=== PATIENT | female | born 1965 | race Caucasian/White ===

== ENCOUNTER 2021-05-21 12:23 | Emergency (ER) | payer OTHER, SELFPAY ==
--- NOTE | ~2021-05-21 | XR_ITS ---
EXAMINATION: XR FOOT, RIGHT CLINICAL INFORMATION: Question soft tissue foreign body great toe. COMPARISON: None TECHNIQUE: AP, lateral, and oblique views of the right foot. FINDINGS: There is no visible soft tissue foreign body in the area of concern. No gas tracking in the soft tissues. There is generalized osteopenia. No focal destructive process or periostitis. Hallux valgus at first MTP is present of approximately 31 degrees. There are mild degenerative changes first MTP and small medial bunion. Old healed fracture involves mid shaft second metatarsal. There is a moderate plantar calcaneal spur. Old orthopedic hardware noted distal tibia and fibula. XR/XR foot RT 2V IMPRESSION: 1. No visible soft tissue radiopaque foreign body or gas tracking in soft tissues. 2. No bony destructive process. 3. Hallux valgus first MTP. Moderate plantar calcaneal spur.
[2021-05-21 12:40] VITALS: BP 113/86; PULSE 76; RESP 18; O2SAT 98; BMI 30.1
--- NOTE | 2021-05-21 13:54 | ED_ITS ---
HPI - General Adult General Chief complaint: Extremity Injury, Lower Stated complaint: possible blister on big toe (right) Time Seen by Provider: 05/21/21 13:50 History of Present Illness HPI narrative: patient complains of painful callus on the bottom of the right foot at the base of the big toe, no injury no redness no fever This is been gradually increasing over weeks to months no acute changes Related Data Allergies Allergy/AdvReac Type Severity Reaction Status Date / Time codeine Allergy Hives Verified 05/21/21 12:47 morphine Allergy Hives Verified 05/21/21 12:46 Review of Systems Review of Systems: Positive for painful callus on the bottom of the right foot Negatives are no fever no chills no neck pain no back pain no joint swelling no rash no numbness weakness or tingling Yes all other systems are reviewed and are negative PMFSH Past Medical History Source: nursing notes reviewed Medical History (Updated 05/22/21 @ 00:01 by Sandra Blair) Cirrhosis Social History Social History Advance Directives: No Advance Directives Information Provided: No Physical Exam Vital Signs: Vital Signs: Last Vital Signs Pulse 76 05/21/21 12:40 Resp 18 05/21/21 12:40 BP 113/86 05/21/21 12:40 Pulse Ox 98 05/21/21 12:40 Body Mass Index 30.1 General appearance no acute distress Head is normocephalic atraumatic Neck is supple Respiratory no distress The back full range of motion Extremities full range of motion x4 The right foot had callus in the medial foot and in the MTP area with no surrounding erythema no wound no sign of infection, full range of motion in the toes and the ankle and neurovascular intact Course Course Course Narrative: Patient with of long history of of gradually increasing in size callus on the right foot with no sign of infection is referred to asphalt heater tender Discharge Plan Discharge Clinical Impression: Callus Patient Disposition: Home, Self-Care Additional Instructions: you can apply salicylic acid available [id number] to the callus, you can do this twice a day and use pumice stone to scrape off skin There is no sign of any infection or dangerous condition now Follow with asphalt heater tender as soon as possible as they have other methods for removing callus return any time if worse You may need a referral from primary doctor to see a asphalt heater tender In the foot section of the pharmacy they have circular bandages that can help pad the callus and they have molesskin bandage which sometimes helps absorbed pressure of impact when walking Referrals: Louie Huerta [Physician] - 2 days ( painful callus) Interventions: ED Discharge Assessment Last Done: 05/21/21 14:06 Discharge Date/Time: 05/21/21 14:07
[2021-05-21] MEDS: Acetaminophen 325 MG TABLET 650 MG PO (14:04)
== END 2021-05-21 14:07 | disposition home or self-care (01) ==
PROVIDERS: Emergency Provider Emergency Medicine
DX: L84 Corns and callosities (principal)
CPT/HCPCS: 73620; 99283

== ENCOUNTER 2021-06-12 00:14 | Emergency (ER) | payer OTHER, SELFPAY ==
[2021-06-12 00:27] VITALS: BP 136/93; BP 170/100; PULSE 85; PULSE 92; RESP 20; TEMP 36.7; O2SAT 93; O2SAT 94; BMI 33.0
[2021-06-12 01:31] VITALS: BP 131/78; PULSE 88; RESP 16; O2SAT 95
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
[2021-06-12 01:58] LABS: Glucose Urine UA NEG (NEG); Leukocyte Esterase Urine 1+ (NEG); Nitrite Urine NEG (NEG); Specific Gravity - Urine <= 1.005 (1.005-1.025); UACC Culture Trigger YES; Urine Blood NEG (NEG); Urine Ketones NEG (NEG); Urine Protein NEG (NEG-TRACE)
[2021-06-12 02:05] LABS: Appearance Urine CLEAR; Color Urine YELLOW
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
[2021-06-12 02:16] LABS: Bacteria Urine TRACE /LPF; Mucus Urine TRACE /LPF; RBC Urine 0 /HPF (0); Squamous Epithelial Cell Urine 2+ /LPF; WBC Clumps Urine NOTED
[2021-06-12 02:21] LABS: Amphetamine Screen Urine Not Detected (Not Detect); Barbiturates, Urine Not Detected (Not Detect); Benzodiazepines Screen Urine Not Detected (Not Detect); Cannabinoid Screen Urine Not Detected (Not Detect); Cocaine Screen Urine Not Detected (Not Detect); Opiate Screen Urine Not Detected (Not Detect); Phencyclidine Screen Urine Not Detected (Not Detect)
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
[2021-06-12 03:10] VITALS: BP 102/44; PULSE 77; RESP 15; O2SAT 95
[2021-06-12] MEDS: cephALEXin 500 MG CAPSULE PO (03:11)
[2021-06-12 03:16] LABS: Basophils Percent Auto 0.3 % (0-2); Hemoglobin 13.6 g/dl (12.0-16.0); Imm Gran Abs Auto 0.02 X10*3/uL (0.00-0.03); Imm Gran Pct Auto 0.3 % (0.0-0.4); Lymphocytes Percent Auto 14.3 % (20-40); Mean Corpuscular Volume 90.1 fL (80-98); PLT CLUMP 1; SCAN SMEAR FLAG 1
[2021-06-12 03:18] LABS: Eosinophils Absolute Auto 0.1 X10*3/uL (0.0-0.4); Eosinophils Percent Auto 1.2 % (0-4); Hematocrit 39.1 % (37-47); Mean Corpuscular HGB Conc 34.8 g/dl (31.0-35.0); Mean Corpuscular Hemoglobin 31.3 pg (27.0-33.0); Mean Platelet Volume 9.9 fL (9.4-12.3); Monocytes Absolute Auto 0.4 X10*3/uL (0.1-1.2); Monocytes Percent Auto 5.4 % (2-11); Neutrophils Absolute Auto 5.3 X10*3/uL (2.0-8.3); Neutrophils Percent Auto 78.5 % (45-73); Red Blood Count 4.34 X10*6/uL (4.20-5.50); White Blood Count 6.8 X10*3/uL (4.8-10.8)
[2021-06-12 03:26] LABS: MANUAL DIFF FLAG NO; Platelet Count 87 X10*3/uL (160-400)
[2021-06-12 03:43] LABS: Ethanol 170 mg/dL
[2021-06-12 03:49] LABS: Alanine Aminotransferase 22 U/L (0-31); Albumin Level 3.9 g/dL (3.5-5.0); Alkaline Phosphatase 113 U/L (39-117); Anion Gap 14 (12-20); Aspartate Amino Transferase 46 U/L (5-31); Bilirubin Total 1.6 mg/dL (0.0-1.0); Blood Urea Nitrogen 7 mg/dL (9-16); Calcium 8.4 mg/dL (8.4-10.2); Carbon Dioxide 25 mmol/L (22-29); Chloride 111 mmol/L (96-108); Estimated Glomerular Filt Rate > 60; Glucose Random 125 mg/dL (60-115); Potassium 3.4 mmol/L (3.3-5.1); Sodium 147 mmol/L (135-145); Total Protein 6.7 g/dL (6.5-8.0)
[2021-06-12 04:54] VITALS: BP 92/73; PULSE 82; RESP 14; O2SAT 94
--- NOTE | 2021-06-12 05:13 | PC.NURSE ---
This rn attempted to contact pt's daughter, Tamara, at [phone], for a ride home per pt's request. Attempt unsuccessful. Dr Lam made aware. Pt to be medicated in efforts to prevent ETOH withdrawal
[2021-06-12] MEDS: chlordiazePOXIDE HCl 25 MG CAPSULE PO (05:20)
== END 2021-06-12 08:18 | disposition home or self-care (01) ==
PROVIDERS: Emergency Provider Student in an Organized Health Care Education/Training Program
DX: F10.920 Alcohol use, unspecified with intoxication, uncomplicated (principal); Y90.6 Blood alcohol level of 120-199 mg/100 ml; S80.12XA Contusion of left lower leg, initial encounter; S80.11XA Contusion of right lower leg, initial encounter; S40.022A Contusion of left upper arm, initial encounter; S40.021A Contusion of right upper arm, initial encounter; S30.1XXA Contusion of abdominal wall, initial encounter; S20.219A Contusion of unspecified front wall of thorax, initial encounter; Y04.2XXA Assault by strike against or bumped into by another person, initial encounter; K74.60 Unspecified cirrhosis of liver; Y93.9 Activity, unspecified; Y92.019 Unspecified place in single-family (private) house as the place of occurrence of the external cause; Y99.9 Unspecified external cause status; N39.0 Urinary tract infection, site not specified
CPT/HCPCS: 36415; 80053; 80307; 81001; 81003; 82077; 85025; 87086; 99284; 99285

== ENCOUNTER 2024-02-07 05:58 | Inpatient (IN) | payer OTHER, SELFPAY ==
--- NOTE | ~2024-02-07 | XR_ITS ---
EXAMINATION: Right ankle and right lower leg CLINICAL INFORMATION: Fall COMPARISON: None. TECHNIQUE: 2 views of the right lower leg and 2 views of the right ankle right ankle. FINDINGS: Right ankle: There is evidence of old trauma to the right ankle. There are old healed fractures of the tibial and fibular shafts. No acute fracture. There is a plate and screws seen in the distal fibular shaft and lateral malleolus. There is a single screw in the medial malleolus. There is an intramedullary kamila and 2 distal screws in the tibia. There is likely posttraumatic osteoarthritis at the ankle joint. Osteopenia. There is a plantar calcaneal spur. There may be an old fracture of the fifth metatarsal shaft. Right lower leg: Old healed fractures of the mid fibular and tibial shafts. Intramedullary kamila and 3 proximal screws in the tibia. Osteopenia. No acute fracture or dislocation. XR/XR ankle RT min 3V IMPRESSION: Old trauma. No acute fracture or dislocation. Osteopenia. 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
--- NOTE | ~2024-02-07 | XR_ITS ---
EXAMINATION: XR FEMUR, LEFT CLINICAL INFORMATION: Fall COMPARISON: None available. TECHNIQUE: AP and lateral views of the left femur were obtained. FINDINGS: Bone alignment is normal. No acute fracture or dislocation. There is an old healed intratrochanteric fracture. There is an intramedullary kamila, 2 compression/lag screws and single distal cortical screw in the proximal femur. There is an old healed fracture of the distal femoral shaft. There is a plate and multiple screws in the distal left femur. Orthopedic hardware appears intact. Hip and knee joints are unremarkable. XR/XR femur LT 2V IMPRESSION: Old trauma to the left femur. No acute fracture or dislocation.
--- NOTE | ~2024-02-07 | XR_ITS ---
EXAMINATION: Right ankle and right lower leg CLINICAL INFORMATION: Fall COMPARISON: None. TECHNIQUE: 2 views of the right lower leg and 2 views of the right ankle right ankle. FINDINGS: Right ankle: There is evidence of old trauma to the right ankle. There are old healed fractures of the tibial and fibular shafts. No acute fracture. There is a plate and screws seen in the distal fibular shaft and lateral malleolus. There is a single screw in the medial malleolus. There is an intramedullary kamila and 2 distal screws in the tibia. There is likely posttraumatic osteoarthritis at the ankle joint. Osteopenia. There is a plantar calcaneal spur. There may be an old fracture of the fifth metatarsal shaft. Right lower leg: Old healed fractures of the mid fibular and tibial shafts. Intramedullary kamila and 3 proximal screws in the tibia. Osteopenia. No acute fracture or dislocation. XR/XR tibia fibula RT 2V IMPRESSION: Old trauma. No acute fracture or dislocation. Osteopenia. 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
--- NOTE | ~2024-02-07 | CT_ITS ---
EXAMINATION: CT CHEST WITHOUT CONTRAST CLINICAL INFORMATION: Fall with abnormal chest radiograph COMPARISON: Chest radiograph earlier today: Low lung volumes. Question bilateral pneumonia, left greater than right TECHNIQUE: Multidetector volumetric CT imaging of the chest was done. Axial MIP volume rendering provided. Sagittal and coronal reformatted images were obtained. This CT examination was performed using dose optimization techniques as appropriate, variously including the following: *Automated exposure control *Adjustment of mA and/or kV according to patient size (this includes techniques or standardized protocols for targeted exams where dose is matched to indication/reason for exam; i.e. extremities or head) *Use of iterative reconstruction technique DLP: 485 mGy-cm FINDINGS: LUNGS: Bilateral upper lobe consolidation is present. Left basilar marked bronchial wall thickening and tree-in-bud like opacities consistent with infection as well as. MEDIASTINUM: Heart size upper limits of normal. No aortic aneurysm. No mediastinal or hilar lymphadenopathy. CORONARY ARTERY CALCIFICATION: None visualized on this study. PLEURA: There is no pleural effusion. No pleural mass or thickening. AXILLA: No lymphadenopathy. UPPER ABDOMEN: The spleen is enlarged measuring at least 16 cm in greatest dimension. Splenic hilar perigastric and probable periesophageal varices are present. The liver has a nodular border and there is recanalization of the umbilical vein suggesting cirrhosis and portal hypertension. A large amount of colon is interposed between the abdominal wall/diaphragm in the right lobe of the liver. OSSEOUS STRUCTURES: Degenerative changes are noted throughout the spine with kyphosis. Schmorl's node is seen at the superior endplate of L1. CT/CT chest wo IV con IMPRESSION: 1. Bilateral upper lobe consolidation with left basilar bronchial wall thickening and tree-in-bud like opacities consistent with infection. 2. Cirrhosis with portal hypertension with varices and splenomegaly. Fleischner guidelines were followed.
--- NOTE | ~2024-02-07 | CT_ITS ---
EXAMINATION: CT HEAD WITHOUT CONTRAST CLINICAL INFORMATION: Fall COMPARISON: None available. TECHNIQUE: Contiguous axial imaging was performed from the skull base to vertex without intravenous administration of contrast. This CT examination was performed using dose optimization techniques as appropriate, variously including the following: *Automated exposure control *Adjustment of mA and/or kV according to patient size (this includes techniques or standardized protocols for targeted exams where dose is matched to indication/reason for exam; i.e. extremities or head) *Use of iterative reconstruction technique DLP: 596 mGy-cm FINDINGS: There is no evidence of an extra-axial collection. There is no evidence of intra or extra-axial hemorrhage. The ventricles and extra-axial CSF spaces are appropriate. There is encephalomalacia, old small infarct or possibly postsurgical change adjacent to the frontal horn of the right lateral ventricle and subcortical white matter of the right frontal lobe. No mass mass effect or acute infarct is seen. Right frontal parietal craniotomy defect. No skull fracture. Visualized paranasal sinuses, mastoid air cells and middle ears are clear. CT/CT head/brain wo IV con IMPRESSION: No acute findings. Right frontal and parietal bone craniotomy defect. Question encephalomalacia or postsurgical change versus old infarct in the right subcortical and periventricular white matter of the right frontal lobe
--- NOTE | ~2024-02-07 | XR_ITS ---
EXAMINATION: XR CHEST CLINICAL INFORMATION: Fall COMPARISON: None available. TECHNIQUE: Frontal view of the chest was obtained. FINDINGS: The lung volumes are low. The cardiac and mediastinal contours are unremarkable. There are patchy areas of airspace disease in the left lung questionable for pneumonia. May be a small infiltrate in the right upper lobe and right perihilar region as well.. No pleural effusion or pneumothorax. No acute bone abnormality is seen. Surgical hardware in the left proximal humerus. XR/XR chest 1V IMPRESSION: Low lung volumes. Question bilateral pneumonia, left greater than right.
--- NOTE | ~2024-02-07 | XR_ITS ---
EXAMINATION: XR KNEE, RIGHT CLINICAL INFORMATION: Fall COMPARISON: None available. TECHNIQUE: Three views of the right knee. FINDINGS: No acute fracture or dislocation. Old healed fracture of the proximal tibial shaft. Intramedullary kamila and 3 proximal tibial screws. Osteopenia. Normal joint spaces. No joint effusion. XR/XR knee RT 3V IMPRESSION: No acute fracture or dislocation. Osteopenia. Old trauma to the proximal tibia.
--- NOTE | ~2024-02-07 | US_ITS ---
EXAMINATION: US VENOUS ULTRASOUND WITH DOPPLER LOWER EXTREMITY, RIGHT CLINICAL INFORMATION: Right leg pain and swelling COMPARISON: None available. TECHNIQUE: Ultrasound of the deep veins is performed from the hip to the calf with compression sonography and color and pulse Doppler assessment. Spectral analysis with color-flow imaging is performed. FINDINGS: There is normal venous compression and respiratory variation and augmented flow. The visualized common femoral vein, superficial femoral vein, profunda femoral vein, popliteal vein, and the trifurcation region shows no evidence of deep venous thrombosis. There is no significant popliteal fossa cyst. The contralateral left common femoral vein appears normal. If the patient's symptoms persist, followup ultrasound in 5 days 7 days might be of value to exclude proximal propagation from a non-visualized calf vein. US/US venous duplex LE RT IMPRESSION: No DVT demonstrated in the right lower extremity.
--- NOTE | ~2024-02-07 | XR_ITS ---
EXAMINATION: XR HIP, RIGHT CLINICAL INFORMATION: Fall COMPARISON: None available. TECHNIQUE: Two views of the right hip. FINDINGS: Bone alignment is normal. No fracture or dislocation. The right hip joint is normal. There is a large laminated 2 cm calcification in the right pelvis area appearance is questionable for possible bladder stone. This could be further evaluated with ultrasound. There is an adjacent surgical clip in the right pelvis. Soft tissues are otherwise normal. XR/XR hip RT min 2V IMPRESSION: No fracture or dislocation. 2 cm laminated right pelvic calcification, question representing a bladder stone.
[2024-02-07 06:11] VITALS: BP 110/78; BP 95/56; PULSE 72; PULSE 88; RESP 19; TEMP 36.4; O2SAT 92; O2SAT 95; BMI 29.7
[2024-02-07 06:56] LABS: Basophils Percent Auto 0.9 % (0-2); Eosinophils Absolute Auto 0.1 X10*3/uL (0.0-0.4); Eosinophils Percent Auto 5.9 % (0-4); Hemoglobin 9.4 g/dl (12.0-16.0); Imm Gran Abs Auto 0.01 X10*3/uL (0.00-0.03); Imm Gran Pct Auto 0.5 % (0.0-0.4); Lymphocytes Absolute Auto 0.6 X10*3/uL (1.2-4.9); Lymphocytes Percent Auto 28.8 % (20-40); MANUAL DIFF FLAG SCAN; Mean Corpuscular HGB Conc 30.3 g/dl (31.0-35.0); Mean Corpuscular Hemoglobin 26.2 pg (27.0-33.0); Mean Corpuscular Volume 86.4 fL (80.0-98.0); Mean Platelet Volume 12.3 fL (9.4-12.3); Monocytes Absolute Auto 0.2 X10*3/uL (0.1-1.2); Monocytes Percent Auto 6.8 % (2-11); Neutrophils Absolute Auto 1.3 x10*3/uL (2.0-8.3); Neutrophils Percent Auto 57.1 % (45-73); Platelet Count 106 X10*3/uL (160-400); Red Blood Count 3.59 X10*6/uL (4.20-5.50); Red Cell Distribution Width 15.8 % (11.0-16.0); SCAN SMEAR FLAG 1
[2024-02-07 06:59] LABS: White Blood Count 2.2 X10*3/uL (4.8-10.8)
[2024-02-07 07:11] LABS: Alanine Aminotransferase 15 U/L (0-31); Alkaline Phosphatase 123 U/L (39-117); Anion Gap 13 (12-20); Aspartate Amino Transferase 23 U/L (5-31); Bilirubin Total 0.8 mg/dL (0.0-1.0); Blood Urea Nitrogen 11 mg/dL (9-16); Calcium 8.3 mg/dL (8.4-10.2); Carbon Dioxide 22 mmol/L (22-29); Chloride 113 mmol/L (96-108); Creatinine Clr Calc Pharmacy 83.1; Estimated Glomerular Filt Rate > 60; Glucose Random 122 mg/dL (60-115); Potassium 3.6 mmol/L (3.3-5.1); Sodium 144 mmol/L (135-145); Total Protein 6.3 g/dL (6.5-8.0)
--- NOTE | 2024-02-07 07:18 | ECG_ITS ---
Test Reason : weakness Blood Pressure : / mmHG Vent. Rate : 064 BPM Atrial Rate : 064 BPM P-R Int : 148 ms QRS Dur : 082 ms QT Int : 444 ms P-R-T Axes : 030 008 041 degrees QTc Int : 458 ms AGE AND GENDER SPECIFIC ECG ANALYSIS Normal sinus rhythm Lateral infarct , possibly acute ACUTE UT / STEMI Abnormal ECG No previous ECGs available Referred By: Mary Leal Electronically Signed By:Boris Guthrie
[2024-02-07 07:30] LABS: SLIDE REVIEW VERIFIED
--- NOTE | 2024-02-07 07:39 | ED.FALL ---
HPI - Fall General Chief Complaint: Fall Stated Complaint: fall Time Seen by Provider: 02/07/24 07:04 Source: patient and old records reviewed Mode of arrival: EMS Limitations: no limitations History of Present Illness HPI Narrative: 58 yo female with PMH of GERD, mood disorder, cirrhosis, prior ETOH abuse she denies current use, not on thinners who is here after recurrent falls at home and notes she falls all the time. She is covered with multiple bruises in various stages on her extremities. Her right leg is red swollen with dark eschar noted mid glass with surrounding edema and erythema no crepitus. She notes it started one day ago. She states she falls because one year ago she injured the R ankle and now it gives out all the time. She denies head strike or LOC. complaint: fall Onset (ago): month(s) Fall from: standing Fall witnessed: no Place fall occurred: home Loss of consciousness: none Prolonged down time: no Symptoms prior to fall: none Context: tripped/slipped and history of frequent falls Location of injury: other (states she gets bumps and bruises on her arms and legs today her knee and upper hip hurt on R side) Severity: moderate Quality: dull and aching Associated symptoms (after fall): denies Related Data Previous Rx's Medication Instructions Recorded cephalexin 500 mg capsule 500 mg PO Q12H 5 days #10 caps 06/12/21 Allergies Allergy/AdvReac Type Severity Reaction Status Date / Time codeine Allergy Hives Verified 02/07/24 06:11 Review of Systems Review of Systems: Constitutional : No Fever, No Chills ENT/Mouth : No Ear Pain, No Hoarseness, No sore throat Eyes: No Eye Pain, No Swelling, No Redness, No Foreign Body Cardiovascular : No Chest Pain, No SOB Respiratory : No Cough, No Dyspnea Gastrointestinal : No Nausea, No Vomiting, No Diarrhea, No abdominal Pain Genitourinary : No Dysuria, No Hematuria Musculoskeletal : positive joint pain, No Myalgias, pos Joint Swelling Skin : No Skin lacerations, pos rash Neuro : No Weakness, No Numbness, No Loss of Consciousness, No Dizziness, No Headache Psych : No Anxiety/Panic, No Depression Heme/Lymph: no easy bruising, no Lymphadenopathy Endocrine : No Polyuria, No Polydipsia All other systems reviewed and are negative [facility] Past Medical History Attestation statement: The following information was validated with the patient. Source: old records reviewed Medical History Cirrhosis Surgical History History of ankle surgery Social History Social History Alcohol intake: current Alcohol intake frequency: 3 or more drinks per day Patient Tobacco Use Status: Current someday Tobacco user Smoked in Last 30 Days: No Use of substances other than those prescribed or required for medical reasons: No Advance Directives: No Patient : No Physical Exam Vital Signs: Vital Signs: Last Vital Signs Temp 97.7 F 02/07/24 11:52 Pulse 66 02/07/24 11:52 Resp 14 02/07/24 11:52 BP 96/58 L 02/07/24 11:52 Pulse Ox 96 02/07/24 11:52 O2 Del Method Room Air 02/07/24 11:52 BMI result Body Mass Index 29.7 Appearance: Alert. Oriented X3. No acute distress. Eyes: Pupils equal, round and reactive to light. ENT: Pharynx normal. atraumatic Neck: Normal inspection. Neck supple. no midline ttp CVS: Normal heart rate and rhythm. Pulses normal. Respiratory: No respiratory distress. Breath sounds normal. Abdomen: Soft and non-tender. Skin: Skin warm and dry. pale skin color. Extremities: No lower extremity edema. ttp along R knee and R ankle all limbs have bruises in various stages R anterior glass dark quarter size black ulcer no purulence surrounding edema and erythema with redness and warmth along entire leg no crepitus felt distal NV intact Neuro: Oriented X 3. No motor deficit. No sensory deficit. Course Course Course Narrative: at this time given CXR possible infection suspected ordered fluids and midodrine has chronic low BP at baseline - home midodrine ordered 5mg clinically has no URI symptoms no dyspnea will obtain CT scan to better assess lungs Reevaluation(s) Reevaluation #1: added on ceftriaxone given UTI already given zosyn for cellulitis no hx of cultures Medications Administered Discontinued Medications Generic Name Dose Route Start Last Admin Trade Name Freq PRN Reason Stop Dose Admin Sodium Chloride 1,000 mls @ 999 mls/hr 02/07/24 07:30 02/07/24 08:15 Ns IV 02/07/24 08:30 999 mls/hr .Q1H1M LONNIE Administration Piperacillin Sod/Tazobactam 50 mls @ 100 mls/hr 02/07/24 07:18 02/07/24 11:27 Sod 3.375 gm/ Sodium Chloride IV 02/07/24 07:47 Infused ONCE ONE Infusion Albumin Human 100 mls @ 100 mls/hr 02/07/24 10:00 02/07/24 11:32 Kedbumin 25 % IV 02/07/24 11:59 100 mls/hr Q1H LONNIE Administration Ceftriaxone Sodium 1 gm/ 50 mls @ 100 mls/hr 02/07/24 10:02 02/07/24 12:10 Sodium Chloride IV 02/07/24 10:31 Infused ONCE ONE Infusion Midodrine 5 mg 02/07/24 09:50 02/07/24 09:57 Midodrine Hcl 5 Mg Tablet PO 02/07/24 09:51 5 mg ONCE ONE Administration Oxycodone HCl 5 mg 02/07/24 09:50 02/07/24 09:57 Oxycodone Hcl Immed Release 5 Mg Tablet PO 02/07/24 09:51 5 mg ONCE ONE Administration Medical Decision Making Medical Decision Making MDM Narrative: 58 yo female with PMH of GERD, mood disorder, cirrhosis, prior ETOH abuse here with c/o frequent falls no CP/SOB now with bruises everywhere and concern for R leg infection at this time labs, CT head, xrays and will start on oral antibiotics for R leg cellulitis. The patient will also need US of RLE to rule out DVT. Admit vs rehab. Differential Diagnosis Differential Diagnoses: The differential diagnosis associated with the presentation includes alcohol abuse, FTT, cellulitis, fracture Admission/Observation Consideration of admission/observation: Escalation of care including admission/observation considered will need admission given cellulitis, UTI, falls, possible pneumonia though clinically denies symptoms Consult Healthcare Provider Management of the patient was discussed with: Hospitalist (will admit) Lab Data [facility] Lab Attestation statement: I reviewed the patient's lab results. 02/07/24 06:47 02/07/24 06:47 Labs: Lab Results 02/07/24 02/07/24 02/07/24 Range/Units 06:47 08:03 11:46 WBC 2.2 L (4.8-10.8) X10*3/uL RBC 3.59 L (4.20-5.50) X10*6/uL Hgb 9.4 L (12.0-16.0) g/dl Hct 31.0 L (37.0-47.0) % MCV 86.4 (80.0-98.0) fL MCH 26.2 L (27.0-33.0) pg MCHC 30.3 L (31.0-35.0) g/dl RDW 15.8 (11.0-16.0) % Plt Count 106 L (160-400) X10*3/uL MPV 12.3 (9.4-12.3) fL Immature Gran % (Auto) 0.5 H (0.0-0.4) % Neut % (Auto) 57.1 (45-73) % Lymph % (Auto) 28.8 (20-40) % [place] % (Auto) 6.8 (2-11) % Eos % (Auto) 5.9 H (0-4) % Baso % (Auto) 0.9 (0-2) % Lymph # (Auto) 0.6 L (1.2-4.9) X10*3/uL [place] # (Auto) 0.2 (0.1-1.2) X10*3/uL Eos # (Auto) 0.1 (0.0-0.4) X10*3/uL Baso # (Auto) 0.0 (0.0-0.2) X10*3/uL Abs Immat Gran (auto) 0.01 (0.00-0.03) X10*3/uL Absolute Neuts (auto) 1.3 L (2.0-8.3) x10*3/uL Absolute Nucleated RBC 0.000 (0.0-0.012) X10*3/uL Nucleated RBC % (auto) 0.0 (0.0-0.2) /100WBC Smear Tech's Comments VERIFIED Smear Path Review SEE NOTE Sodium 144 (135-145) mmol/L Potassium 3.6 (3.3-5.1) mmol/L Chloride 113 H (96-108) mmol/L Carbon Dioxide 22 (22-29) mmol/L Anion Gap 13 (12-20) BUN 11 (9-16) mg/dL Creatinine 0.72 (0.5-1.4) mg/dL Estim Creat Clear Calc 83.1 Estimated GFR > 60 Random Glucose 122 H (60-115) mg/dL Lactic Acid 1.9 (0.5-2.0) mmol/L Calcium 8.3 L (8.4-10.2) mg/dL Magnesium 2.1 (1.6-2.6) mg/dL Total Bilirubin 0.8 (0.0-1.0) mg/dL AST 23 (5-31) U/L ALT 15 (0-31) U/L Alkaline Phosphatase 123 H (39-117) U/L Ammonia 47 (13-55) umol/L Total Creatine Kinase 70 (26-140) U/L Troponin I High Sens 4.1 (<3.5-17.0) ng/L Total Protein 6.3 L (6.5-8.0) g/dL Albumin 3.0 L (3.5-5.0) g/dL Urine Color Dark Yellow Urine Appearance Cloudy Urine pH 6.0 (5.0-9.0) Ur Specific [place] 1.025 (1.005-1.025) Urine Protein Trace (Neg-Trace) mg/dL Urine Glucose (UA) Negative (Negative) mg/dL Urine Ketones Trace (Negative) mg/dL Urine Blood Negative (Negative) Urine Nitrite Negative (Negative) Ur Leukocyte Esterase Moderate (2+) H (Negative) Urine RBC 0-2 (0-2) /HPF Urine WBC >50 H (0-5) /HPF Ur Squamous Epith Cells 0-2 (0-2) /HPF Urine Bacteria 3+ (None Seen) Hyaline Casts 0-2 (0-2) /LPF Ethyl Alcohol < 10 mg/dL Independent Interpretation I performed an independent interpretation of an: EKG, Plain X-Ray (?pneumonia) and CT Scan (no ICH) Interpretation: Rate: 64 Rhythm: NSR [place]: normal Normal P waves. Normal GORDON. Normal QRS complex. ST T wave : no SHELLEY, sig artifact noted qTC: 458 prior studies: artifact noted The study has been interpreted contemporaneously by me. . Radiology Impression Discussion of test interpretation with radiology: I have reviewed the radiologist's reading. Independent Historian Clinical information obtained from an independent historian. History obtained from or confirmed by: EMS External Record Review External record reviewed: Inpatient record Social Determinants Patient?s care significantly limited by Social Determinants of Health including: Problems related to primary support group Discharge Plan Discharge Clinical Impression: Acute UTI, Pancytopenia Falls Qualifiers: Encounter type: initial encounter Qualified Code(s): W19.XXXA - Unspecified fall, initial encounter Cellulitis Qualifiers: Site of cellulitis: extremity Site of cellulitis of extremity: lower extremity Laterality: right Qualified Code(s): L03.115 - Cellulitis of right lower limb Patient Disposition: Admitted As Inpatient
[2024-02-07 07:44] LABS: Ethanol < 10 mg/dL; Magnesium 2.1 mg/dL (1.6-2.6)
[2024-02-07 08:03] LABS: Troponin-I High Sensitivity 4.1 ng/L (<3.5-17.0)
[2024-02-07] MEDS: 0.9 % Sodium Chloride 1,000 ML 999 ML IV (08:15)
[2024-02-07] MEDS: Piperacillin Sodium/Tazobactam 3.375 GM in 0.9 % Sodium Chloride 50 ML IV (08:15)
--- NOTE | 2024-02-07 08:17 | PC.NURSE ---
this RN resumed care of pt at this time. pt a&ox4 but slow to respond/answer to questions appropriately. pt seems to be extremely weak as she is unable to follow commands appropriately in regards to holding body weight up when placing an IV, etc. delay in lab draw d/t pt being a difficult stick. 22gIV placed in the right wrist. patent/intact. labs obtained/sent to lab. IVF/abx administered per provider order. ultrasound being completed bedside at this time. no sob/wob noted. respirations even and unlabored. plan of care ongoing. call velasquez placed within reach.
[2024-02-07 08:19] LABS: Ammonia 47 umol/L (13-55)
[2024-02-07 08:23] LABS: Lactic Acid 1.9 mmol/L (0.5-2.0)
--- NOTE | 2024-02-07 09:21 | PC.NURSE ---
CT completed. pt to xray at this time. plan of care ongoing.
[2024-02-07 09:39] VITALS: BP 92/55; PULSE 67; RESP 15; TEMP 37
[2024-02-07] MEDS: oxyCODONE HCl Immed Release 5 MG TABLET PO (09:57)
[2024-02-07] MEDS: Midodrine HCl 5 MG TABLET PO (09:57)
[2024-02-07] MEDS: Albumin Human 25 % 100 ML IV ×2 (10:02→11:32)
--- NOTE | 2024-02-07 10:08 | PC.NURSE ---
pt found to be slightly hypotensive - pt verbalizes taking 5mg of midodrine TID - took 5mg dose last night. pt also c/o 9/10 right leg pain. ED provider notified/aware of findings. medication administered per provider order. effectiveness pending. pt remains nsr on the saw setter. pt continues to wait for results of scans at this time. respirations remain even and unlabored. plan of care ongoing. call velasquez placed within reach.
[2024-02-07] MEDS: cefTRIAXone sodium 1 GM in 0.9 % Sodium Chloride 50 ML IV (11:24)
--- NOTE | 2024-02-07 11:49 | PC.NURSE ---
straight catheterization performed. 125ml of dark yellow urine noted immediately post output. pt tolerated well. urine obtained/sent to lab. medication administered per provider order. pt verbalizing no change in pain level despite medication administration. pt remains hypotensive at this time. IVF continues to infuse. plan of care ongoing. call velasquez placed within reach.
[2024-02-07 11:52] VITALS: BP 96/58; PULSE 66; RESP 14; TEMP 36.5; O2SAT 96
[2024-02-07 11:59] LABS: Appearance Urine Cloudy; Color Urine Dark Yellow; Glucose Urine UA Negative (Negative); Leukocyte Esterase Urine Moderate (2+) (Negative); Nitrite Urine Negative (Negative); Specific Gravity - Urine 1.025 (1.005-1.025); UMIC TRIGGER UACC YES; Urine Blood Negative (Negative); Urine Ketones Trace mg/dL (Negative); Urine Protein Trace mg/dL (Neg-Trace)
[2024-02-07 12:02] LABS: Bacteria Urine 3+ (None Seen); Hyaline Casts Urine 0-2 /LPF (0-2); RBC Urine 0-2 /HPF (0-2); Squamous Epithelial Cell Urine 0-2 /HPF (0-2); UACC Culture Trigger YES; WBC Urine >50 /HPF (0-5)
--- NOTE | 2024-02-07 13:59 | PHA.MEDREC ---
Pharmacy Consult ? Medication Reconciliation Pharmacy has completed the medication reconciliation. Patient was randomly listing medications that she takes and getting disoriented, seemed slightly confused. She did report gabapetnin, traozdone, folic acid, and lots of vitamins. Reported she has a nurse organized her medications. To get to most accurate list, contacted [facility] for the most up to date list. Nuha De La Paz, NasrinD
[2024-02-07 14:33] VITALS: BP 97/61; PULSE 83; RESP 20; TEMP 36.5; O2SAT 95
--- NOTE | 2024-02-07 14:34 | PC.NURSE ---
vss and up to date aside from pt remaining slightly hypotensive. nsr on the teletypesetter monitor. pt c/o 06/23 right leg pain - requesting medication. ED provider notified/aware of pt's request. respirations remain even and unlabored. plan of care ongoing. call velasquez placed within reach.
--- NOTE | 2024-02-07 14:43 | P.HPHOSP_ITS ---
<Statement entered by Ramila Barker MD - 02/19/24 15:01> The patient was seen and evaluated with ERIKA Talbot. I agree with her note, assessment and plan with the following. In summary, a 58 years old lady with PMH of TBI and alcohol use with liver cirrhosis and varices presenting with RLE wound with cellulitis. #Acute RLE open wound with cellulitis Pending cultures Start Vancomycin and Zosyn surgery consult pain management Rest of evaluations by PA note. History of Present Illness Date of Service: 02/07/24 Attending physician on admission: Ramila Barker Chief Complaint: falls 58-year-old female patient with a past medical history of alcohol use disorder with previous withdrawals, history of prior TBI, liver cirrhosis with esophageal varices and hyperammonemia on rifaxamin, previous subdural hemorrhage s/p craniotomy, and mood disorder?presented to the ED earlier today via ems due to recurrent falls at home. She states she falls due to chronic weakness in the R ankle. States she injured the ankle about 1 year ago and follows with [facility] and is due to have surgery on the joint but is unable to provide additional details. She is oriented x4 but appears drowsy and somewhat slow ot respond. She denies any etoh use in about 1 year. No ilicit substance use or cigarette smoking. She is a former smoker. She has bruises all over her body and is reporting a wound of the RLE which she noticed 2 days ago. No purulent drainage. Denies fevers, chills, abd pain, n/v/d, dysuria, hematuria, increased urinary frequency, cough, sob, wheezing, or chest pain. Denies head injury or loc with her falls. No prolonged downtime. Has VNA at home who assist with care. On arrival, VSS other than chronically borderline hypotension related to cirrhosis. Has chronic leukopenia 2.2. Renal function, lytes normal. Total CK 70. Ammonia 47. UA with 2+ leuks, positive urinary sediment, 3+ bacteria. Ethyl alcohol level undetectable. UTox pending. XR R ankle, tib/fib, knee, femur, hip negative for acute osseous abnormality or focal bony erosion but does show osteopenia. Venous duplex RLE negative for dvt. Head CT negative for acute intracranial abnormality. Shows right frontal and perietal bone craniotomy defect and possible encephalomalacia or postsurgical change vs old infarct in right subcortical and periventricular matter of right frontal lobe. Chest CT shows bilateral upper lobe consolidation with left basilar bronchial wall thickening and tree-in-bud opacities consistent with infection as well as cirrhosis with portal hypertension with varices and splenomegaly. In the ED, given midodrine, 1 L IV NS, albumin x2, 1g ctx, 3.375g zosyn, oxycodone. Pt to be admitted for further management of infected ulcer of RLE with cellulitis. Review of Systems 2 Review of Systems: General: No fevers, malaise, unintentional weight loss HEENT: No blurred vision, diplopia. No sore throat, nasal congestion, rhinorrhea, sinus pain, ear pain Cardiovascular: No chest pain, palpitations, or leg edema Respiratory: No shortness of breath, wheezing, cough GI: No abdominal pain, nausea, vomiting, diarrhea, constipation, melena, hematochezia : No dysuria, hematuria, increased urinary frequency, decreased urinary output MSK: No myalgia, back pain. +falls. +pain rle Neuro: No headaches, weakness, paresthesias Skin: No rashes. +wound RLE [facility] Medical History (Updated 02/07/24 @ 15:15 by ERIKA Talbot) Hepatic encephalopathy Mood disorder Subdural hematoma Portal hypertension Esophageal varices History of traumatic brain injury Pancytopenia Cirrhosis Surgical History (Updated 02/07/24 @ 15:15 by ERIKA Talbot) S/P craniotomy History of ankle surgery Social History (Updated 02/07/24 @ 15:15 by ERIKA Talbot) Alcohol intake: former Patient Tobacco Use Status: Former Tobacco user Meds Allergies Allergy/AdvReac Type Severity Reaction Status Date / Time codeine Allergy Hives Verified 02/07/24 06:11 Active Medications: Current Medications Acetaminophen (Acetaminophen 325 Mg Tablet) 650 mg PO Q6H PRN PRN Reason: Pain, Mild (Pain Scale 1-3) Clonidine HCl (Clonidine Hcl 0.1 Mg Tablet) 0.1 mg PO BEDTIME MRX1 PRN; Protocol PRN Reason: Insomnia Folic Acid (Folic Acid 1 Mg Tablet) 1 mg PO DAILY LONNIE Furosemide (Furosemide 40 Mg Tablet) 40 mg PO SuTuTh@0900 LONNIE; Protocol Gabapentin (Gabapentin 400 Mg Capsule) 800 mg PO TID LONNIE Heparin Sodium (Porcine) (Heparin Sodium,Porcine 5,000 Unit/Ml Vial) 5,000 unit SUBCUT Q12H LONNIE Hydroxyzine HCl (Hydroxyzine Hcl 25 Mg Tablet) 25 mg PO TID LONNIE Thiamine HCl 200 mg/ Sodium (Chloride) 102 mls @ 204 mls/hr IV ONCE ONE Stop: 02/07/24 14:47 Piperacillin Sod/Tazobactam (Sod 4.5 gm/ Sodium Chloride) 100 mls @ 200 mls/hr IV Q6H LONNIE Vancomycin HCl (Vancomycin/Ns) 2,000 mg in 500 mls @ 250 mls/hr IV ONCE ONE Stop: 02/07/24 16:44 Lorazepam (Lorazepam 0.5 Mg Tablet) 0.5 mg PO TID PRN PRN Reason: severe anxiety Midodrine (Midodrine Hcl 10 Mg Tablet) 10 mg PO TID LONNIE Mirtazapine (Mirtazapine 15 Mg Tablet) 15 mg PO BEDTIME LONNIE Non-Formulary Medication (Meloxicam) 15 mg PO DAILY PRN PRN Reason: joint pain Non-Formulary Medication (Pantoprazole) 20 mg PO DAILY [facility] Olanzapine (Olanzapine 2.5 Mg Tablet) 2.5 mg PO BEDTIME LONNIE Ondansetron HCl (Ondansetron Hcl 4 Mg/2 Ml Vial) 4 mg IVPUSH Q8H PRN PRN Reason: Nausea and Vomiting Pharmacy Consult (Consult Rx Vancomycin Dosing) 1 each MISCELLANE DAILY PRN PRN Reason: Consult order Potassium Chloride (Potassium Chloride Er 20 Meq Tab.Er.Prt) 20 meq PO BID [facility] Rifaximin (Rifaximin 550 Mg Tablet) 550 mg PO BID [facility] Senna (Sennosides 8.6 Mg Tablet) 17.2 mg PO BEDTIME PRN PRN Reason: Constipation Sodium Chloride (0.9 % Sodium Chloride Flush 3 Ml Syringe) 3 ml IVFLUSH QSHIFT LONNIE Sumatriptan Succinate (Sumatriptan Succinate 25 Mg Tablet) 25 mg PO DAILY MRX1 PRN PRN Reason: Headache Topiramate (Topiramate 25 Mg Tablet) 50 mg PO BID LONNIE Trazodone HCl (Trazodone Hcl 100 Mg Tablet) 200 mg PO BEDTIME LONNIE Venlafaxine HCl (Venlafaxine Hcl Er 37.5 Mg Cap.Er.24h) 37.5 mg PO DAILY [facility] Venlafaxine HCl (Venlafaxine Hcl Er 75 Mg Cap.Er.24h) 75 mg PO DAILY [facility] Home Medications Medication Instructions Recorded Confirmed Last Taken Type clonidine HCl 0.1 mg tablet 0.1 - 0.2 mg PO BEDTIME PRN 02/07/24 02/07/24 Unknown History Insomnia diclofenac sodium 1 % topical gel 4 g topical TID 02/07/24 02/07/24 Unknown History folic acid 1 mg tablet 1 mg PO DAILY 02/07/24 02/07/24 Unknown History furosemide 40 mg tablet 40 mg PO SuTuTh@0900 02/07/24 02/07/24 Unknown History gabapentin 800 mg tablet 800 mg PO TID 02/07/24 02/07/24 Unknown History hydroxyzine HCl 25 mg tablet 25 mg PO TID 02/07/24 02/07/24 Unknown History lidocaine 5 % topical cream 1 appl topical TID PRN Pain 02/07/24 02/07/24 Unknown History (RectaSmoothe) lorazepam 0.5 mg tablet 0.5 mg PO TID PRN severe anxiety 02/07/24 02/07/24 Unknown History meloxicam 15 mg tablet 15 mg PO DAILY PRN Pain 02/07/24 02/07/24 Unknown History midodrine 10 mg tablet 10 mg PO TID 02/07/24 02/07/24 Unknown History mirtazapine 15 mg tablet 15 mg PO BEDTIME 02/07/24 02/07/24 Unknown History olanzapine 2.5 mg tablet 2.5 mg PO BEDTIME 02/07/24 02/07/24 Unknown History pantoprazole 20 mg tablet,delayed 20 mg PO DAILY 02/07/24 02/07/24 Unknown History release potassium chloride 20 mEq 20 meq PO BID 02/07/24 02/07/24 Unknown History tablet,extended release(part/cryst) rifaximin 550 mg tablet (Xifaxan) 550 mg PO BID 02/07/24 02/07/24 Unknown History sumatriptan succinate 25 mg tablet 25 mg PO DAILY MRX1 PRN Headache 02/07/24 02/07/24 Unknown History topiramate 50 mg tablet 50 mg PO BID 02/07/24 02/07/24 Unknown History trazodone 100 mg tablet 200 mg PO BEDTIME 02/07/24 02/07/24 Unknown History venlafaxine 37.5 mg 37.5 mg PO DAILY 02/07/24 02/07/24 Unknown History capsule,extended release 24 hr venlafaxine 75 mg capsule,extended 75 mg PO DAILY 02/07/24 02/07/24 Unknown History release 24 hr Physical Exam 2 Vital Signs and Narrative: Vital Signs: Last Vital Signs Temp 97.7 F 02/07/24 14:33 Pulse 83 02/07/24 14:33 Resp 20 02/07/24 14:33 BP 97/61 02/07/24 14:33 Pulse Ox 95 02/07/24 14:33 O2 Del Method Room Air 02/07/24 14:33 BMI result Body Mass Index 29.7 Constitutional - Awake and Alert, No apparent distress Eyes - PERRLA, EOMI Cardiovascular - S1S2, RRR, No edema Respiratory - Normal lung expansion, Normal respiratory effort, No respiratory distress, CTA bilaterally Gastrointestinal - NT / ND; +BS; No rebound or guarding Extremities - no calf tenderness bilaterally, no swelling Skin - Warm/Dry. 2cm x 2cm trauamtic wound RLE with eschar and surrounding erythema and warmth. No purulent drainage Neurological - Alert & oriented x4 but slow to respond, CN II-XII in tact, 4/5 strength BUE and BLE Psychological - Appropriate affect Results Labs 02/07/24 06:47 02/07/24 06:47 Labs: Laboratory Results - last 24 hr 02/07/24 02/07/24 02/07/24 06:47 08:03 11:46 MCV 86.4 MCH 26.2 L MCHC 30.3 L RDW 15.8 Plt Count 106 L MPV 12.3 Immature Gran % (Auto) 0.5 H Neut % (Auto) 57.1 Lymph % (Auto) 28.8 [place] % (Auto) 6.8 Eos % (Auto) 5.9 H Baso % (Auto) 0.9 Lymph # (Auto) 0.6 L [place] # (Auto) 0.2 Eos # (Auto) 0.1 Baso # (Auto) 0.0 Abs Immat Gran (auto) 0.01 Absolute Neuts (auto) 1.3 L Absolute Nucleated RBC 0.000 Nucleated RBC % (auto) 0.0 Smear Tech's Comments VERIFIED Smear Path Review SEE NOTE Anion Gap 13 Estim Creat Clear Calc 83.1 Estimated GFR > 60 Random Glucose 122 H Lactic Acid 1.9 Calcium 8.3 L Magnesium 2.1 Total Bilirubin 0.8 AST 23 ALT 15 Alkaline Phosphatase 123 H Ammonia 47 Total Creatine Kinase 70 Troponin I High Sens 4.1 Total Protein 6.3 L Albumin 3.0 L Urine Color Dark Yellow Urine Appearance Cloudy Urine pH 6.0 Ur Specific Jackson 1.025 Urine Protein Trace Urine Glucose (UA) Negative Urine Ketones Trace Urine Blood Negative Urine Nitrite Negative Ur Leukocyte Esterase Moderate (2+) H Urine RBC 0-2 Urine WBC >50 H Ur Squamous Epith Cells 0-2 Urine Bacteria 3+ Hyaline Casts 0-2 Ethyl Alcohol < 10 Imaging Radiologist's Impressions: Impressions Venous Duplex 02/07/24 08:30 IMPRESSION: No DVT demonstrated in the right lower extremity. Head CT 02/07/24 08:50 IMPRESSION: No acute findings. Right frontal and parietal bone craniotomy defect. Question encephalomalacia or postsurgical change versus old infarct in the right subcortical and periventricular white matter of the right frontal lobe Ankle X-Ray 02/07/24 09:28 IMPRESSION: Old trauma. No acute fracture or dislocation. Osteopenia. 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 Chest X-Ray 02/07/24 09:28 IMPRESSION: Low lung volumes. Question bilateral pneumonia, left greater than right. Femur X-Ray 02/07/24 09:28 IMPRESSION: Old trauma to the left femur. No acute fracture or dislocation. Hip X-Ray 02/07/24 09:28 IMPRESSION: No fracture or dislocation. 2 cm laminated right pelvic calcification, question representing a bladder stone. Knee X-Ray 02/07/24 09:28 IMPRESSION: No acute fracture or dislocation. Osteopenia. Old trauma to the proximal tibia. Tibia/Fibula X-Ray 02/07/24 09:28 IMPRESSION: Old trauma. No acute fracture or dislocation. Osteopenia. 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 Chest CT 02/07/24 12:45 IMPRESSION: 1. Bilateral upper lobe consolidation with left basilar bronchial wall thickening and tree-in-bud like opacities consistent with infection. 2. Cirrhosis with portal hypertension with varices and splenomegaly. Fleischner guidelines were followed. Assessment and Plan (1) Traumatic open wound of right lower leg with infection: Status: Acute (2) Pneumonia: Status: Acute (3) Acute UTI: Status: Acute (4) Cellulitis: Qualifiers: Laterality: right Site of cellulitis: extremity Site of cellulitis of extremity: lower extremity Qualified Code(s): L03.115 - Cellulitis of right lower limb Status: Acute (5) Falls: Qualifiers: Encounter type: initial encounter Qualified Code(s): W19.XXXA - Unspecified fall, initial encounter Status: Acute Plan 58-year-old female patient with a past medical history of alcohol use disorder with previous withdrawals, history of prior TBI, liver cirrhosis with esophageal varices and hyperammonemia on rifaxamin, previous subdural hemorrhage s/p craniotomy, and mood disorder?admitted for further management of infected wound RLE with cellulitis #Acute infected wound RLE with cellulitis -XR tib.fib negative for osseous abnormality except osteopenia. ESR/CRP pending -leukopenia chronic, not sepsis -iv vanco/zosyn (initiated 02/06) -general surgery consult -pain management prn -follow cultures #Bilateral pneumonia -asymptomatic -abx as above #UTI -IV zosyn as above -follow cultures #Acute vs chronic encephalopathy -suspect chronic related to known hepatic encephalopathy, possible wernicke's, polypharmacy, vs acute related to infection -Ammonia 47. Head CT negative for acute intracranial abnormality but showed encephalomalacia -continue rifaximin. No longer on lactulose -monitor mentation #Recurrent falls -pt eval #Alcoholic cirrhosis- no acute decompensation -complicated by pancytopenia, portal hypertension, esophageal varices, hepatic encephalopathy -continue rifaximin, furosemide #Borderline hypotension -chronic r/t cirrhosis -hold clonidine. continue midodrine #Mood disorder -continue home meds dvt prophylaxis- heparin full code pt requires inpt stay due to significant cellulitis RLE with infected wound requiring IV abx and probale surgical debridement following expert consultation and will require evaluation by pt for possible placement Quality Stroke Does the patient have a stroke diagnosis?: No VTE Prior VTE?: No VTE Risk Level:: Medical - moderate - high VTE Device Contraindication: Treatment Not Indicated VTE Drug Contraindication: N/A - Med Ordered
[2024-02-07 15:06] LABS: Amphetamine Screen Urine POSITIVE (Not Detect); Barbiturates, Urine Not Detected (Not Detect); Benzodiazepines Screen Urine Not Detected (Not Detect); Cannabinoid Screen Urine Not Detected (Not Detect); Cocaine Screen Urine Not Detected (Not Detect); Fentanyl, urine Not Detected (Not Detect); Opiate Screen Urine Not Detected (Not Detect); Phencyclidine Screen Urine Not Detected (Not Detect)
[2024-02-07] MEDS: Gabapentin 400 MG CAPSULE 800 MG PO ×2 (16:17→21:42)
[2024-02-07] MEDS: NaPROXEN 500 MG TABLET PO (16:17)
[2024-02-07] MEDS: hydrOXYzine HCL 25 MG TABLET PO ×2 (16:17→21:42)
[2024-02-07] MEDS: LORazepam 0.5 MG TABLET PO (16:49)
--- NOTE | 2024-02-07 16:57 | PC.NURSE ---
delay in medication d/t pt being extremely difficult stick. this RN attempted multiple times as well as JESUS Hagan. no success at this time. Dr. Blum bedside assessing pt to see if pt is suitable for EJ. plan of care ongoing at this time.
[2024-02-07] MEDS: Piperacillin Sodium/Tazobactam 4.5 GM in 0.9 % Sodium Chloride 100 ML IV ×2 (17:00→23:29)
--- NOTE | 2024-02-07 17:21 | PC.NURSE ---
pt remains behind in medication administration d/t pt being a difficult stick. dr. subramanian unable to obtain IV access via ultrasound guidance. admitting provider notified/aware. will administer medication through 22gIV placed in the right wrist at this time. plan of care ongoing.
[2024-02-07 17:39] VITALS: BP 108/69; PULSE 75; RESP 16; TEMP 36.7; O2SAT 94
[2024-02-07] MEDS: Thiamine HCL 200 MG in 0.9 % Sodium Chloride 100 ML 204 MG IV (17:54)
[2024-02-07] MEDS: Heparin Sodium,Porcine 5,000 UNIT/ML VIAL 5000 UNIT SUBCUT (18:24)
[2024-02-07] MEDS: Midodrine HCl 10 MG TABLET PO (18:24)
[2024-02-07] MEDS: vancomycin/NS 2,000 MG/500 ML PLAST..BAG 250 MG IV (18:25)
--- NOTE | 2024-02-07 18:34 | PHA.PROG ---
Admission Date/Time: February 07, 2024 14:27 Indication: Cellulitis Weight in k kg Adjusted body weight in K.7 kg Gary body weight in K.4 kg Obesity Dosing Indication % IBW: 145% Serum Creatinine - Last 168 Hours 02/07/24 06:47 Creatinine 0.72 Estimated CrCl and GFR - Last 168 Hours 02/07/24 06:47 Estim Creat Clear Calc 83.1 Estimated GFR > 60 Vancomycin Loading Dose: 2000 mg Current Vancomycin Dosing Regimen: 1000 mg Q12H Date and Time for next Vancomycin Level to be drawn: 02/08 @ 0600 Pharmacist Comments on Vancomycin Plan: patient is current receiving an adequate load dose in the ER on 02/06 @ 1825 maintenance dose vancomycin 1000 mg Q12H is scheduled to start 02/07 @ 0800. Predicted AUC is 503 with a trough trough of 15.6 level will be drawn prior to 4th dose pharmacy will monitor renal function daily Nuha De La Paz PharmD Vancomycin dosing will take advantage of [employer] as a clinical decision support tool that uses Bayesian modeling to calculate individual patient's pharmacokinetic parameters and forecast the patient's drug concentration time course with the target goal AUC 24 range of 400 - 600 mg/L/hr.
[2024-02-07 20:11] VITALS: BP 125/81; PULSE 86; RESP 18; TEMP 36.5; O2SAT 96
--- NOTE | 2024-02-07 20:12 | MHC.EDTECH ---
This tech took over care of patient at 1900,hourly rounds and vitals completed,patient has a pure wick in place done by previous shift,patient is clean and dry, This tech took dinner tray away,patient ate 75% of meal,call velasquez in reach
[2024-02-07] MEDS: Topiramate 25 MG TABLET 50 MG PO (21:42)
[2024-02-07] MEDS: Potassium Chloride ER 20 MEQ TAB.ER.PRT PO (21:42)
[2024-02-07] MEDS: traZODone HCL 100 MG TABLET 200 MG PO (21:42)
[2024-02-07] MEDS: OLANZapine 2.5 MG TABLET PO (21:42)
[2024-02-07] MEDS: Mirtazapine 15 MG TABLET PO (21:42)
--- NOTE | 2024-02-07 22:14 | MHC.EDTECH ---
Hourly rounds completed,patient is resting comfortably at this time,call velasquez in reach
--- NOTE | 2024-02-07 22:15 | MHC.EDTECH ---
Belongings list completed and copy placed in chart.
[2024-02-07] MEDS: rifAXIMin 550 MG TABLET PO (22:34)
--- NOTE | 2024-02-07 23:26 | P.CONGS_ITS ---
History of Present Illness Consult details Consult date: 02/07/24 Requesting physician: Ada Oliveros Narrative: 58-year-old female patient with a past medical history of alcohol use disorder with previous withdrawals, history of prior TBI, liver cirrhosis with esophageal varices and hyperammonemia on rifaxamin, previous subdural hemorrhage s/p craniotomy, and mood disorder?presented to the ED earlier today via ems due to recurrent falls at home. She states she falls due to chronic weakness in the R ankle. She has an old hematoma wound on her right anterior glass from this. She is being admitted for medical issues and we are being consulted for this wound PMFSH Past Medical History Medical History (Updated 02/07/24 @ 15:15 by ERIKA Talbot) Hepatic encephalopathy Mood disorder Subdural hematoma Portal hypertension Esophageal varices History of traumatic brain injury Pancytopenia Cirrhosis Surgical History Surgical History (Updated 02/07/24 @ 15:15 by ERIKA Talbot) S/P craniotomy History of ankle surgery Social History Social History (Updated 02/07/24 @ 15:15 by ERIKA Talbot) Alcohol intake: former Patient Tobacco Use Status: Former Tobacco user Smoked in Last 30 Days: No Use of substances other than those prescribed or required for medical reasons: No Advance Directives: No Nutrition Risks: No Nutritional Risk Patient : No Meds Allergies Allergy/AdvReac Type Severity Reaction Status Date / Time codeine Allergy Hives Verified 02/07/24 06:11 Active Medications: Current Medications Acetaminophen (Acetaminophen 325 Mg Tablet) 650 mg PO Q6H PRN PRN Reason: Pain, Mild (Pain Scale 1-3) Folic Acid (Folic Acid 1 Mg Tablet) 1 mg PO DAILY [facility] Furosemide (Furosemide 40 Mg Tablet) 40 mg PO SuTuTh@0900 [facility]; Protocol Gabapentin (Gabapentin 400 Mg Capsule) 800 mg PO TID [facility] Last Admin: 02/07/24 21:42 Dose: 800 mg Heparin Sodium (Porcine) (Heparin Sodium,Porcine 5,000 Unit/Ml Vial) 5,000 unit SUBCUT Q12H [facility] Last Admin: 02/07/24 18:24 Dose: 5,000 unit Hydroxyzine HCl (Hydroxyzine Hcl 25 Mg Tablet) 25 mg PO TID [facility] Last Admin: 02/07/24 21:42 Dose: 25 mg Piperacillin Sod/Tazobactam (Sod 4.5 gm/ Sodium Chloride) 100 mls @ 200 mls/hr IV Q6H [facility] Last Infusion: 02/07/24 17:57 Dose: Infused Vancomycin HCl 1,000 mg/ (Sodium Chloride) 270 mls @ 270 mls/hr IV Q12H [facility] Lorazepam (Lorazepam 0.5 Mg Tablet) 0.5 mg PO TID PRN PRN Reason: severe anxiety Last Admin: 02/07/24 16:49 Dose: 0.5 mg Midodrine (Midodrine Hcl 10 Mg Tablet) 10 mg PO TID@0600,1200,1800 [facility] Last Admin: 02/07/24 18:24 Dose: 10 mg Mirtazapine (Mirtazapine 15 Mg Tablet) 15 mg PO BEDTIME [facility] Last Admin: 02/07/24 21:42 Dose: 15 mg Naproxen (Naproxen 500 Mg Tablet) 500 mg PO BID PRN PRN Reason: joint pain Last Admin: 02/07/24 16:17 Dose: 500 mg Olanzapine (Olanzapine 2.5 Mg Tablet) 2.5 mg PO BEDTIME [facility] Last Admin: 02/07/24 21:42 Dose: 2.5 mg Omeprazole (Omeprazole 20 Mg Capsule.Dr) 20 mg PO DAILY@0630 [facility] Ondansetron HCl (Ondansetron Hcl 4 Mg/2 Ml Vial) 4 mg IVPUSH Q8H PRN PRN Reason: Nausea and Vomiting Pharmacy Consult (Consult Rx Vancomycin Dosing) 1 each MISCELLANE DAILY PRN PRN Reason: Consult order Potassium Chloride (Potassium Chloride Er 20 Meq Tab.Er.Prt) 20 meq PO BID [facility] Last Admin: 02/07/24 21:42 Dose: 20 meq Rifaximin (Rifaximin 550 Mg Tablet) 550 mg PO BID [facility] Last Admin: 02/07/24 22:34 Dose: 550 mg Senna (Sennosides 8.6 Mg Tablet) 17.2 mg PO BEDTIME PRN PRN Reason: Constipation Sodium Chloride (0.9 % Sodium Chloride Flush 3 Ml Syringe) 3 ml IVFLUSH QSHIFT [facility] Last Admin: 02/07/24 17:03 Dose: Not Given Sumatriptan Succinate (Sumatriptan Succinate 25 Mg Tablet) 25 mg PO DAILY MRX1 PRN PRN Reason: Headache Thiamine HCl (Thiamine Hcl 100 Mg Tablet) 100 mg PO DAILY [facility] Topiramate (Topiramate 25 Mg Tablet) 50 mg PO BID [facility] Last Admin: 02/07/24 21:42 Dose: 50 mg Trazodone HCl (Trazodone Hcl 100 Mg Tablet) 200 mg PO BEDTIME [facility] Last Admin: 02/07/24 21:42 Dose: 200 mg Venlafaxine HCl (Venlafaxine Hcl Er 37.5 Mg Cap.Er.24h) 37.5 mg PO DAILY [facility] Venlafaxine HCl (Venlafaxine Hcl Er 75 Mg Cap.Er.24h) 75 mg PO DAILY [facility] Home Medications Medication Instructions Recorded Confirmed Last Taken Type clonidine HCl 0.1 mg tablet 0.1 - 0.2 mg PO BEDTIME PRN 02/07/24 02/07/24 Unknown History Insomnia diclofenac sodium 1 % topical gel 4 g topical TID 02/07/24 02/07/24 Unknown History folic acid 1 mg tablet 1 mg PO DAILY 02/07/24 02/07/24 Unknown History furosemide 40 mg tablet 40 mg PO SuTuTh@0900 02/07/24 02/07/24 Unknown History gabapentin 800 mg tablet 800 mg PO TID 02/07/24 02/07/24 Unknown History hydroxyzine HCl 25 mg tablet 25 mg PO TID 02/07/24 02/07/24 Unknown History lidocaine 5 % topical cream 1 appl topical TID PRN Pain 02/07/24 02/07/24 Unknown History (RectaSmoothe) lorazepam 0.5 mg tablet 0.5 mg PO TID PRN severe anxiety 02/07/24 02/07/24 Unknown History meloxicam 15 mg tablet 15 mg PO DAILY PRN Pain 02/07/24 02/07/24 Unknown History midodrine 10 mg tablet 10 mg PO TID 02/07/24 02/07/24 Unknown History mirtazapine 15 mg tablet 15 mg PO BEDTIME 02/07/24 02/07/24 Unknown History olanzapine 2.5 mg tablet 2.5 mg PO BEDTIME 02/07/24 02/07/24 Unknown History pantoprazole 20 mg tablet,delayed 20 mg PO DAILY 02/07/24 02/07/24 Unknown History release potassium chloride 20 mEq 20 meq PO BID 02/07/24 02/07/24 Unknown History tablet,extended release(part/cryst) rifaximin 550 mg tablet (Xifaxan) 550 mg PO BID 02/07/24 02/07/24 Unknown History sumatriptan succinate 25 mg tablet 25 mg PO DAILY MRX1 PRN Headache 02/07/24 02/07/24 Unknown History topiramate 50 mg tablet 50 mg PO BID 02/07/24 02/07/24 Unknown History trazodone 100 mg tablet 200 mg PO BEDTIME 02/07/24 02/07/24 Unknown History venlafaxine 37.5 mg 37.5 mg PO DAILY 02/07/24 02/07/24 Unknown History capsule,extended release 24 hr venlafaxine 75 mg capsule,extended 75 mg PO DAILY 02/07/24 02/07/24 Unknown History release 24 hr Physical Exam 2 Vital Signs: Vital Signs: Last Vital Signs Temp 97.7 F 02/07/24 20:11 Pulse 86 02/07/24 20:11 Resp 18 02/07/24 20:11 BP 125/81 02/07/24 20:11 Pulse Ox 96 02/07/24 20:11 O2 Del Method Room Air 02/07/24 20:11 BMI result Body Mass Index 29.7 Skin: Other: Right anterior glass patient has a quarter-size wound which looks like old hematoma and some purulent material underneath. She has some cellulitic changes on her lateral right thigh. She has a palpable dorsalis pedis pulse in the midst of some moderate edema Results Labs 02/07/24 06:47 02/07/24 06:47 Labs: Abnormal lab results 02/07/24 02/07/24 Range/Units 06:47 11:46 WBC 2.2 L (4.8-10.8) X10*3/uL RBC 3.59 L (4.20-5.50) X10*6/uL Hgb 9.4 L (12.0-16.0) g/dl Hct 31.0 L (37.0-47.0) % MCH 26.2 L (27.0-33.0) pg MCHC 30.3 L (31.0-35.0) g/dl Plt Count 106 L (160-400) X10*3/uL Immature Gran % (Auto) 0.5 H (0.0-0.4) % Eos % (Auto) 5.9 H (0-4) % Lymph # (Auto) 0.6 L (1.2-4.9) X10*3/uL Absolute Neuts (auto) 1.3 L (2.0-8.3) x10*3/uL Chloride 113 H (96-108) mmol/L Random Glucose 122 H (60-115) mg/dL Calcium 8.3 L (8.4-10.2) mg/dL Alkaline Phosphatase 123 H (39-117) U/L Total Protein 6.3 L (6.5-8.0) g/dL Albumin 3.0 L (3.5-5.0) g/dL Ur Leukocyte Esterase Moderate (2+) H (Negative) Urine WBC >50 H (0-5) /HPF Ur Amphetamines Screen POSITIVE H (Not Detect) Short CBC 02/07/24 Range/Units 06:47 WBC 2.2 L (4.8-10.8) X10*3/uL Hgb 9.4 L (12.0-16.0) g/dl Hct 31.0 L (37.0-47.0) % Plt Count 106 L (160-400) X10*3/uL BMP 02/07/24 06:47 Sodium 144 Potassium 3.6 Chloride 113 H Carbon Dioxide 22 BUN 11 Creatinine 0.72 Calcium 8.3 L Cardiac Enzymes 02/07/24 Range/Units 06:47 Total Creatine Kinase 70 (26-140) U/L Liver Function 02/07/24 Range/Units 06:47 Total Bilirubin 0.8 (0.0-1.0) mg/dL AST 23 (5-31) U/L ALT 15 (0-31) U/L Alkaline Phosphatase 123 H (39-117) U/L Albumin 3.0 L (3.5-5.0) g/dL Urine 02/07/24 Range/Units 11:46 Urine Color Dark Yellow Urine Appearance Cloudy Urine pH 6.0 (5.0-9.0) Ur Specific [place] 1.025 (1.005-1.025) Urine Protein Trace (Neg-Trace) mg/dL Urine Glucose (UA) Negative (Negative) mg/dL All other labs normal. Assessment and Plan (1) Traumatic open wound of right lower leg with infection: Status: Acute Plan Patient with old hematoma and wound on right lower leg from fall-area debrided to the subcutaneous fatty tissue 2 x 2 cm and packed with saline gauze. Plan to change to alginate dressing every other day on discharge. Patient can follow up on wound care after discharge. Procedure-- the area of the wound was debrided with a Q-tip lifting up the scab and old hematoma and then irrigated with saline and packed with normal saline cause Procedures Date of Service Date of Service: 02/07/24
--- NOTE | 2024-02-07 23:29 | PC.NURSE ---
Delay in ab admnistration due to IV line not working. U/S guided line placed on L FA.
[2024-02-08] VITALS (7 sets, daily range): BP systolic 111–146; BP diastolic 59–70; PULSE 64–99; RESP 13–16; TEMP 36.1–36.7; O2SAT 95–97
--- NOTE | 2024-02-08 00:11 | MHC.EDTECH ---
Patient was repositioned and linen changed for comfort,hourly rounds and vitals completed. Patient was given a ham sandwich and a can of marivel martha,ate all of snack. Pure wick draining,patient is clean and dry,call velasquez in reach.
[2024-02-08] MEDS: Piperacillin Sodium/Tazobactam 4.5 GM in 0.9 % Sodium Chloride 100 ML IV ×4 (02:50→23:51)
--- NOTE | 2024-02-08 04:01 | MHC.EDTECH ---
Hourly rounds and vitals completed,patient is resting comfortably at this time,call velasquez in reach
--- NOTE | 2024-02-08 05:50 | MHC.EDTECH ---
Hourly rounds and vitals completed,emptied 250MLS of dark yellow urine from canister, repositioned patient to comfort,call velasquez in reach
[2024-02-08] MEDS: Heparin Sodium,Porcine 5,000 UNIT/ML VIAL 5000 UNIT SUBCUT ×2 (06:10→17:16)
[2024-02-08] MEDS: Midodrine HCl 10 MG TABLET PO ×3 (06:10→19:54)
[2024-02-08] MEDS: Omeprazole 20 MG CAPSULE.DR PO (06:10)
[2024-02-08 06:17] LABS: Basophils Percent Auto 0.9 % (0-2); Eosinophils Absolute Auto 0.1 X10*3/uL (0.0-0.4); Eosinophils Percent Auto 4.4 % (0-4); Hematocrit 27.4 % (37.0-47.0); Hemoglobin 8.4 g/dl (12.0-16.0); Imm Gran Abs Auto 0.01 X10*3/uL (0.00-0.03); Imm Gran Pct Auto 0.9 % (0.0-0.4); Lymphocytes Absolute Auto 0.4 X10*3/uL (1.2-4.9); Lymphocytes Percent Auto 37.2 % (20-40); MANUAL DIFF FLAG SCAN; Mean Corpuscular HGB Conc 30.7 g/dl (31.0-35.0); Mean Corpuscular Hemoglobin 26.4 pg (27.0-33.0); Mean Corpuscular Volume 86.2 fL (80.0-98.0); Mean Platelet Volume 12.6 fL (9.4-12.3); Monocytes Absolute Auto 0.1 X10*3/uL (0.1-1.2); Monocytes Percent Auto 11.5 % (2-11); Neutrophils Absolute Auto 0.5 x10*3/uL (2.0-8.3); Neutrophils Percent Auto 45.1 % (45-73); Red Blood Count 3.18 X10*6/uL (4.20-5.50); Red Cell Distribution Width 15.9 % (11.0-16.0); SCAN SMEAR FLAG 1
--- NOTE | 2024-02-08 06:18 | MHC.EDTECH ---
Emptied 250MLS of urine from canister,patient given a marivel martha and cheese stick.
[2024-02-08 06:22] LABS: Platelet Count 85 X10*3/uL (160-400); White Blood Count 1.1 X10*3/uL (4.8-10.8)
[2024-02-08 06:38] LABS: Anion Gap 8 (12-20); Blood Urea Nitrogen 10 mg/dL (9-16); Carbon Dioxide 26 mmol/L (22-29); Chloride 117 mmol/L (96-108); Creatinine Clr Calc Pharmacy 69.5; Estimated Glomerular Filt Rate > 60; Glucose Random 114 mg/dL (60-115); Potassium 4.2 mmol/L (3.3-5.1); Sodium 147 mmol/L (135-145)
[2024-02-08 07:14] LABS: SLIDE REVIEW VERIFIED
--- NOTE | 2024-02-08 07:20 | HE.PHANOTE ---
VANCO DOSE ADJUSTMENT BASED ON SCR DOSE CONTINUED AT 1000 Q 12. NEXT LEVEL 02/08 @ 0600
--- NOTE | 2024-02-08 08:10 | PC.NURSE ---
[employer] texted. pt ate breakfast. no distress
--- NOTE | 2024-02-08 08:25 | PC.NURSE ---
boosted and repos. with tech, placed on side w pillow, checked for incontinence- none, purewick intact. VS done and stable.
--- NOTE | 2024-02-08 08:36 | PC.NURSE ---
rn walked in room to give po meds and iv vanco- transport in middle of pushing pt out on stretcher upstairs. no distress. returned po meds to alexia
[2024-02-08] MEDS: vancomycin HCL 1,000 MG in 0.9 % Sodium Chloride 250 ML 270 MG IV ×2 (09:03→19:49)
[2024-02-08] MEDS: 0.9 % Sodium Chloride Flush 3 ML SYRINGE IVFLUSH ×3 (09:09→19:58)
[2024-02-08] MEDS: Thiamine HCL 100 MG TABLET PO (10:32)
[2024-02-08] MEDS: Acetaminophen 325 MG TABLET 650 MG PO (10:32)
[2024-02-08] MEDS: rifAXIMin 550 MG TABLET PO ×2 (10:33→19:55)
[2024-02-08] MEDS: Venlafaxine HCl ER 37.5 MG CAP.ER.24H PO (10:34)
[2024-02-08] MEDS: Folic Acid 1 MG TABLET PO (10:34)
[2024-02-08] MEDS: hydrOXYzine HCL 25 MG TABLET PO ×3 (10:34→19:55)
[2024-02-08] MEDS: Potassium Chloride ER 20 MEQ TAB.ER.PRT PO ×2 (10:34→19:55)
[2024-02-08] MEDS: Venlafaxine HCl ER 75 MG CAP.ER.24H PO (10:34)
--- NOTE | 2024-02-08 10:41 | HO.PM.IMPN ---
Subjective Subjective Date of Service: 02/08/24 Interval History: lethargic Physical Exam Vital Signs: Vital Signs: Last Vital Signs Temp 96.9 F 02/08/24 09:05 Pulse 75 02/08/24 09:05 Resp 14 02/08/24 09:05 BP 122/59 L 02/08/24 09:05 Pulse Ox 95 02/08/24 09:05 O2 Del Method Room Air 02/08/24 09:05 BMI result Body Mass Index 29.7 lethargic, reluctant to answer questions, abd soft non tender, rle wound dressing, lungs clear, rue 3+/5 Objective Data Active Medications Acetaminophen (Acetaminophen 325 Mg Tablet) 650 mg PO Q6H PRN PRN Reason: Pain, Mild (Pain Scale 1-3) Last Admin: 02/08/24 10:32 Dose: 650 mg Documented By: VINAYAK Folic Acid (Folic Acid 1 Mg Tablet) 1 mg PO DAILY [facility] Last Admin: 02/08/24 10:34 Dose: 1 mg Documented By: VINAYAK Furosemide (Furosemide 40 Mg Tablet) 40 mg PO SuTuTh@0900 [facility]; Protocol Gabapentin (Gabapentin 400 Mg Capsule) 800 mg PO TID [facility] Last Admin: 02/07/24 21:42 Dose: 800 mg Documented By: MILI Heparin Sodium (Porcine) (Heparin Sodium,Porcine 5,000 Unit/Ml Vial) 5,000 unit SUBCUT Q12H [facility] Last Admin: 02/08/24 06:10 Dose: 5,000 unit Documented By: MILI Hydroxyzine HCl (Hydroxyzine Hcl 25 Mg Tablet) 25 mg PO TID [facility] Last Admin: 02/08/24 10:34 Dose: 25 mg Documented By: VINAYAK Vancomycin HCl 1,000 mg/ (Sodium Chloride) 270 mls @ 270 mls/hr IV Q12H [facility] Last Infusion: 02/08/24 10:35 Dose: Infused Documented By: VINAYAK Piperacillin Sod/Tazobactam (Sod 4.5 gm/ Sodium Chloride) 100 mls @ 200 mls/hr IV Q6H [facility] Last Admin: 02/08/24 10:30 Dose: 200 mls/hr Documented By: VINAYAK Lorazepam (Lorazepam 0.5 Mg Tablet) 0.5 mg PO TID PRN PRN Reason: severe anxiety Last Admin: 02/07/24 16:49 Dose: 0.5 mg Documented By: SEMAJ Midodrine (Midodrine Hcl 10 Mg Tablet) 10 mg PO TID@0600,1200,1800 [facility] Last Admin: 02/08/24 06:10 Dose: 10 mg Documented By: MILI Mirtazapine (Mirtazapine 15 Mg Tablet) 15 mg PO BEDTIME [facility] Last Admin: 02/07/24 21:42 Dose: 15 mg Documented By: MILI Naproxen (Naproxen 500 Mg Tablet) 500 mg PO BID PRN PRN Reason: joint pain Last Admin: 02/07/24 16:17 Dose: 500 mg Documented By: AYAZ Olanzapine (Olanzapine 2.5 Mg Tablet) 2.5 mg PO BEDTIME [facility] Last Admin: 02/07/24 21:42 Dose: 2.5 mg Documented By: MILI Omeprazole (Omeprazole 20 Mg Capsule.Dr) 20 mg PO DAILY@0630 [facility] Last Admin: 02/08/24 06:10 Dose: 20 mg Documented By: MILI Ondansetron HCl (Ondansetron Hcl 4 Mg/2 Ml Vial) 4 mg IVPUSH Q8H PRN PRN Reason: Nausea and Vomiting Pharmacy Consult (Consult Rx Vancomycin Dosing) 1 each MISCELLANE DAILY PRN PRN Reason: Consult order Potassium Chloride (Potassium Chloride Er 20 Meq Tab.Er.Prt) 20 meq PO BID [facility] Last Admin: 02/08/24 10:34 Dose: 20 meq Documented By: VINAYAK Rifaximin (Rifaximin 550 Mg Tablet) 550 mg PO BID [facility] Last Admin: 02/08/24 10:33 Dose: 550 mg Documented By: VINAYAK Senna (Sennosides 8.6 Mg Tablet) 17.2 mg PO BEDTIME PRN PRN Reason: Constipation Sodium Chloride (0.9 % Sodium Chloride Flush 3 Ml Syringe) 3 ml IVFLUSH QSHIFT [facility] Last Admin: 02/08/24 09:09 Dose: 3 ml Documented By: VINAYAK Sumatriptan Succinate (Sumatriptan Succinate 25 Mg Tablet) 25 mg PO DAILY MRX1 PRN PRN Reason: Headache Thiamine HCl (Thiamine Hcl 100 Mg Tablet) 100 mg PO DAILY [facility] Last Admin: 02/08/24 10:32 Dose: 100 mg Documented By: VINAYAK Topiramate (Topiramate 25 Mg Tablet) 50 mg PO BID [facility] Last Admin: 02/07/24 21:42 Dose: 50 mg Documented By: MILI Trazodone HCl (Trazodone Hcl 100 Mg Tablet) 200 mg PO BEDTIME [facility] Last Admin: 02/07/24 21:42 Dose: 200 mg Documented By: MILI Venlafaxine HCl (Venlafaxine Hcl Er 37.5 Mg Cap.Er.24h) 37.5 mg PO DAILY [facility] Last Admin: 02/08/24 10:34 Dose: 37.5 mg Documented By: VINAYAK Venlafaxine HCl (Venlafaxine Hcl Er 75 Mg Cap.Er.24h) 75 mg PO DAILY [facility] Last Admin: 02/08/24 10:34 Dose: 75 mg Documented By: VINAYAK Labs 02/08/24 05:02 02/08/24 05:02 Labs: Laboratory Results - last 24 hr 02/07/24 02/08/24 11:46 05:02 MCV 86.2 MCH 26.4 L MCHC 30.7 L RDW 15.9 Plt Count 85 L MPV 12.6 H Immature Gran % (Auto) 0.9 H Neut % (Auto) 45.1 Lymph % (Auto) 37.2 [place] % (Auto) 11.5 H Eos % (Auto) 4.4 H Baso % (Auto) 0.9 Lymph # (Auto) 0.4 L [place] # (Auto) 0.1 Eos # (Auto) 0.1 Baso # (Auto) 0.0 Abs Immat Gran (auto) 0.01 Absolute Neuts (auto) 0.5 L Absolute Nucleated RBC 0.000 Nucleated RBC % (auto) 0.0 Smear Tech's Comments VERIFIED Anion Gap 8 L Estim Creat Clear Calc 69.5 Estimated GFR > 60 Random Glucose 114 Calcium 8.0 L Urine Color Dark Yellow Urine Appearance Cloudy Urine pH 6.0 Ur Specific [place] 1.025 Urine Protein Trace Urine Glucose (UA) Negative Urine Ketones Trace Urine Blood Negative Urine Nitrite Negative Ur Leukocyte Esterase Moderate (2+) H Urine RBC 0-2 Urine WBC >50 H Ur Squamous Epith Cells 0-2 Urine Bacteria 3+ Hyaline Casts 0-2 Urine Opiates Screen Not Detected Urine Fentanyl Screen Not Detected Ur Barbiturates Screen Not Detected Ur Phencyclidine Scrn Not Detected Ur Amphetamines Screen POSITIVE H U Benzodiazepines Scrn Not Detected Urine Cocaine Screen Not Detected U Marijuana (THC) Screen Not Detected Microbiology Microbiology Results: Microbiology 02/07/24 Unknown Urine Culture - Preliminary Urine Catheterized - Straight Catheter 02/07/24 08:03 Blood Culture - Preliminary Blood - Venous No growth after 24 hours. 02/07/24 07:38 Blood Culture - Preliminary Blood - Venous No growth after 24 hours. Assessment and Plan (1) Traumatic open wound of right lower leg with infection: Status: Acute Plan 58F alcohol use disorder with previous withdrawals, history of prior TBI, liver cirrhosis with esophageal varices and hyperammonemia on rifaxamin, previous subdural hemorrhage s/p craniotomy, and mood disorder?admitted for further management of infected wound RLE with cellulitis Acute infected wound RLE with cellulitis XR tib.fib negative for osseous abnormality except osteopenia leukopenia chronic, not sepsis iv vanco/zosyn (initiated 02/06) general surgery appreciated, debrided at bedside, recommended alginate dressing every other day on discharge and wound care follow up Bilateral pneumonia asymptomatic abx as above UTI IV zosyn as above follow cultures Acute vs chronic encephalopathy suspect chronic related to known hepatic encephalopathy, possible wernicke's, polypharmacy, vs acute related to infection Ammonia 47. Head CT negative for acute intracranial abnormality but showed encephalomalacia continue rifaximin. 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 continue midodrine Mood disorder continue zyprexa dvt prophylaxis- heparin full code reason for continued hospitalization: broad spectrum iv abx while awaiting cultures Quality Stroke Does the patient have a stroke diagnosis?: No VTE Prior VTE?: No VTE Risk Level:: Medical - moderate - high VTE Device Contraindication: Treatment Not Indicated VTE Drug Contraindication: N/A - Med Ordered
[2024-02-08] MEDS: Topiramate 25 MG TABLET 50 MG PO ×2 (10:44→19:55)
[2024-02-08] MEDS: LORazepam 0.5 MG TABLET PO ×3 (10:44→20:35)
[2024-02-08] MEDS: Gabapentin 400 MG CAPSULE 800 MG PO ×3 (10:44→19:54)
--- NOTE | 2024-02-08 14:27 | MHC.CM.PN ---
IMM delivered. Patient is from home w/ daughter/DRIVER TRAINER and ex-. Total paid DRIVER TRAINER hours is 21.75/wk. Active w/ [facility] for SN and PT. Return referral sent. PCP Brice David, ERIKA @ [facility] HCP on file and verified. Agent is son Chemo. DP: PT rec STR. CM discussed with patient who denied STR referral. Prefers to go home w/ resumption of current services. Daughter to transport. CM will continue to follow for dc needs.
[2024-02-08] MEDS: Mirtazapine 15 MG TABLET PO (19:55)
[2024-02-08] MEDS: traZODone HCL 100 MG TABLET 200 MG PO (19:55)
[2024-02-08] MEDS: OLANZapine 2.5 MG TABLET PO (19:56)
[2024-02-08] MEDS: NaPROXEN 500 MG TABLET PO (20:35)
[2024-02-08] MEDS: diphenhydrAMINE HCL 25 MG CAPSULE PO (21:08)
[2024-02-09 04:00] VITALS: BP 120/59; PULSE 86; RESP 18; TEMP 36.1; O2SAT 95
[2024-02-09] MEDS: Midodrine HCl 10 MG TABLET PO ×2 (05:59→12:45)
[2024-02-09] MEDS: Omeprazole 20 MG CAPSULE.DR PO (05:59)
[2024-02-09] MEDS: Piperacillin Sodium/Tazobactam 4.5 GM in 0.9 % Sodium Chloride 100 ML IV ×3 (06:02→17:47)
[2024-02-09] MEDS: Heparin Sodium,Porcine 5,000 UNIT/ML VIAL 5000 UNIT SUBCUT ×2 (06:02→17:57)
[2024-02-09 06:08] LABS: Hemoglobin 8.2 g/dl (12.0-16.0); Mean Corpuscular HGB Conc 30.4 g/dl (31.0-35.0); Mean Corpuscular Hemoglobin 26.4 pg (27.0-33.0); Mean Corpuscular Volume 86.8 fL (80.0-98.0); Mean Platelet Volume 12.2 fL (9.4-12.3); Red Blood Count 3.11 X10*6/uL (4.20-5.50); Red Cell Distribution Width 15.9 % (11.0-16.0)
[2024-02-09 06:09] LABS: Platelet Count 83 X10*3/uL (160-400); White Blood Count 1.2 X10*3/uL (4.8-10.8)
[2024-02-09 06:14] LABS: INTERNATIONAL NORM RATIO 1.1 (0.9-1.1); Prothrombin Time 13.4 SEC (11.1-13.3)
[2024-02-09 06:23] LABS: Anion Gap 9 (12-20); Blood Urea Nitrogen 11 mg/dL (9-16); Calcium 8.3 mg/dL (8.4-10.2); Carbon Dioxide 24 mmol/L (22-29); Chloride 117 mmol/L (96-108); Creatinine Clr Calc Pharmacy 66.5; Estimated Glomerular Filt Rate > 60; Glucose Fasting 128 mg/dL (60-99); Potassium 4.3 mmol/L (3.3-5.1); Sodium 146 mmol/L (135-145)
[2024-02-09 06:32] LABS: Vancomycin Trough 25.2 mcg/mL (10.0-20.0)
[2024-02-09 06:54] VITALS: BP 124/65; PULSE 88; RESP 16; TEMP 36.1; O2SAT 95
[2024-02-09] MEDS: Acetaminophen 325 MG TABLET 650 MG PO ×2 (07:35→21:12)
[2024-02-09] MEDS: Thiamine HCL 100 MG TABLET PO (07:35)
[2024-02-09] MEDS: Venlafaxine HCl ER 37.5 MG CAP.ER.24H PO (07:35)
[2024-02-09] MEDS: Venlafaxine HCl ER 75 MG CAP.ER.24H PO (07:35)
[2024-02-09] MEDS: NaPROXEN 500 MG TABLET PO ×2 (07:35→21:11)
[2024-02-09] MEDS: rifAXIMin 550 MG TABLET PO ×2 (07:35→21:11)
[2024-02-09] MEDS: Topiramate 25 MG TABLET 50 MG PO ×2 (07:35→21:11)
[2024-02-09] MEDS: hydrOXYzine HCL 25 MG TABLET PO ×3 (07:36→21:12)
[2024-02-09] MEDS: Potassium Chloride ER 20 MEQ TAB.ER.PRT PO ×2 (07:36→21:12)
[2024-02-09] MEDS: Gabapentin 400 MG CAPSULE 800 MG PO ×3 (07:36→21:11)
[2024-02-09] MEDS: Folic Acid 1 MG TABLET PO (07:36)
[2024-02-09] MEDS: Furosemide 40 MG TABLET PO (07:41)
[2024-02-09] MEDS: Dextrose 5 % 1,000 ML 100 ML IVCONT ×2 (07:43→23:45)
[2024-02-09] MEDS: 0.9 % Sodium Chloride Flush 3 ML SYRINGE IVFLUSH (07:47)
--- NOTE | 2024-02-09 09:26 | P.PNIM_ITS ---
Subjective Subjective Date of Service: 02/09/24 Interval History: tremulous Physical Exam 2 Vital Signs: Vital Signs: Last Vital Signs Temp 97 F 02/09/24 06:54 Pulse 88 02/09/24 06:54 Resp 16 02/09/24 06:54 BP 124/65 02/09/24 06:54 Pulse Ox 95 02/09/24 06:54 O2 Del Method Room Air 02/09/24 06:54 BMI result Body Mass Index 29.7 alert, tremulous, oriented times 3, but questionable insight Objective Data Active Medications Acetaminophen (Acetaminophen 325 Mg Tablet) 650 mg PO Q6H PRN PRN Reason: Pain, Mild (Pain Scale 1-3) Last Admin: 02/09/24 07:35 Dose: 650 mg Documented By: ANGEL Folic Acid (Folic Acid 1 Mg Tablet) 1 mg PO DAILY [facility] Last Admin: 02/09/24 07:36 Dose: 1 mg Documented By: ANGEL Furosemide (Furosemide 40 Mg Tablet) 40 mg PO SuTuTh@0900 [facility]; Protocol Last Admin: 02/09/24 07:41 Dose: 40 mg Documented By: ANGEL Gabapentin (Gabapentin 400 Mg Capsule) 800 mg PO TID [facility] Last Admin: 02/09/24 07:36 Dose: 800 mg Documented By: ANGEL Heparin Sodium (Porcine) (Heparin Sodium,Porcine 5,000 Unit/Ml Vial) 5,000 unit SUBCUT Q12H [facility] Last Admin: 02/09/24 06:02 Dose: 5,000 unit Documented By: WALLACE Hydroxyzine HCl (Hydroxyzine Hcl 25 Mg Tablet) 25 mg PO TID [facility] Last Admin: 02/09/24 07:36 Dose: 25 mg Documented By: ANGEL Piperacillin Sod/Tazobactam (Sod 4.5 gm/ Sodium Chloride) 100 mls @ 200 mls/hr IV Q6H [facility] Last Infusion: 02/09/24 06:35 Dose: Infused Documented By: WALLACE Vancomycin HCl 1,000 mg/ (Sodium Chloride) 270 mls @ 270 mls/hr IV Q12H [facility] Dextrose (D5w) 1,000 mls @ 100 mls/hr IVCONT .Q10H [facility] Last Admin: 02/09/24 07:43 Dose: 100 mls/hr Documented By: ANGEL Lorazepam (Lorazepam 0.5 Mg Tablet) 0.5 mg PO TID PRN PRN Reason: severe anxiety Last Admin: 02/08/24 20:35 Dose: 0.5 mg Documented By: WALLACE Comments: pt c/o anxiety, Dr. Yasir Gomez to give dose early. Midodrine (Midodrine Hcl 10 Mg Tablet) 10 mg PO TID@0600,1200,1800 [facility] Last Admin: 02/08/24 19:54 Dose: 10 mg Documented By: WALLACE Mirtazapine (Mirtazapine 15 Mg Tablet) 15 mg PO BEDTIME [facility] Last Admin: 02/08/24 19:55 Dose: 15 mg Documented By: WALLACE Naproxen (Naproxen 500 Mg Tablet) 500 mg PO BID PRN PRN Reason: joint pain Last Admin: 02/09/24 07:35 Dose: 500 mg Documented By: ANGEL Olanzapine (Olanzapine 2.5 Mg Tablet) 2.5 mg PO BEDTIME [facility] Last Admin: 02/08/24 19:56 Dose: 2.5 mg Documented By: WALLACE Omeprazole (Omeprazole 20 Mg Capsule.) 20 mg PO DAILY@0630 [facility] Last Admin: 02/09/24 05:59 Dose: 20 mg Documented By: WALLACE Ondansetron HCl (Ondansetron Hcl 4 Mg/2 Ml Vial) 4 mg IVPUSH Q8H PRN PRN Reason: Nausea and Vomiting Pharmacy Consult (Consult Rx Vancomycin Dosing) 1 each MISCELLANE DAILY PRN PRN Reason: Consult order Potassium Chloride (Potassium Chloride Er 20 Meq Tab.Er.Prt) 20 meq PO BID [facility] Last Admin: 02/09/24 07:36 Dose: 20 meq Documented By: ANGEL Rifaximin (Rifaximin 550 Mg Tablet) 550 mg PO BID [facility] Last Admin: 02/09/24 07:35 Dose: 550 mg Documented By: ANGEL Senna (Sennosides 8.6 Mg Tablet) 17.2 mg PO BEDTIME PRN PRN Reason: Constipation Sodium Chloride (0.9 % Sodium Chloride Flush 3 Ml Syringe) 3 ml IVFLUSH QSHIFT [facility] Last Admin: 02/09/24 07:47 Dose: 3 ml Documented By: ANGEL Sumatriptan Succinate (Sumatriptan Succinate 25 Mg Tablet) 25 mg PO DAILY MRX1 PRN PRN Reason: Headache Thiamine HCl (Thiamine Hcl 100 Mg Tablet) 100 mg PO DAILY [facility] Last Admin: 02/09/24 07:35 Dose: 100 mg Documented By: ANGEL Topiramate (Topiramate 25 Mg Tablet) 50 mg PO BID [facility] Last Admin: 02/09/24 07:35 Dose: 50 mg Documented By: ANGEL Trazodone HCl (Trazodone Hcl 100 Mg Tablet) 200 mg PO BEDTIME [facility] Last Admin: 02/08/24 19:55 Dose: 200 mg Documented By: WALLACE Venlafaxine HCl (Venlafaxine Hcl Er 37.5 Mg Cap.Er.24h) 37.5 mg PO DAILY [facility] Last Admin: 02/09/24 07:35 Dose: 37.5 mg Documented By: ANGEL Venlafaxine HCl (Venlafaxine Hcl Er 75 Mg Cap.Er.24h) 75 mg PO DAILY [facility] Last Admin: 02/09/24 07:35 Dose: 75 mg Documented By: ANGEL Labs 02/09/24 05:58 02/09/24 05:58 Labs: Laboratory Results - last 24 hr 02/09/24 05:58 MCV 86.8 MCH 26.4 L MCHC 30.4 L RDW 15.9 Plt Count 83 L MPV 12.2 Absolute Nucleated RBC 0.000 Nucleated RBC % (auto) 0.0 PT 13.4 H INR 1.1 Anion Gap 9 L Estim Creat Clear Calc 66.5 Estimated GFR > 60 Fasting Glucose 128 H Calcium 8.3 L Vancomycin Trough 25.2 H* Microbiology Microbiology Results: Microbiology 02/07/24 Unknown Urine Culture - Preliminary Urine Catheterized - Straight Catheter 02/07/24 08:03 Blood Culture - Preliminary Blood - Venous No growth after 24 hours. 02/07/24 07:38 Blood Culture - Preliminary Blood - Venous No growth after 24 hours. Assessment and Plan (1) Traumatic open wound of right lower leg with infection: Status: Acute Plan 58F alcohol use disorder with previous withdrawals, history of prior TBI, liver cirrhosis with esophageal varices and hyperammonemia on rifaxamin, previous subdural hemorrhage s/p craniotomy, and mood disorder?admitted for further management of infected wound RLE with cellulitis Acute infected wound RLE with cellulitis XR tib.fib negative for osseous abnormality except osteopenia leukopenia chronic, not sepsis iv vanco/zosyn (initiated 02/06) general surgery appreciated, debrided at bedside, recommended alginate dressing every other day on discharge and wound care follow up Bilateral pneumonia asymptomatic abx as above UTI IV zosyn as above cultures - mixed cordelia Acute vs chronic encephalopathy suspect chronic related to known hepatic encephalopathy, possible wernicke's, polypharmacy, vs acute related to infection Ammonia 47. Head CT negative for acute intracranial abnormality but showed encephalomalacia continue rifaximin. lactulose Recurrent falls pt eval Alcoholic cirrhosis- no acute decompensation complicated by pancytopenia, portal hypertension, esophageal varices, hepatic encephalopathy continue rifaximin, furosemide Borderline hypotension -chronic r/t cirrhosis not sepsis hold clonidine. continue midodrine Mood disorder continue zyprexa dvt prophylaxis- heparin full code reason for continued hospitalization: broad spectrum iv abx while awaiting cultures Quality Stroke Does the patient have a stroke diagnosis?: No VTE Prior VTE?: No VTE Risk Level:: Medical - moderate - high VTE Device Contraindication: Treatment Not Indicated VTE Drug Contraindication: N/A - Med Ordered
[2024-02-09] MEDS: LORazepam 0.5 MG TABLET PO ×2 (12:45→21:11)
[2024-02-09] MEDS: Lactulose 20 GM/30 ML SOLUTION PO (12:47)
[2024-02-09 16:00] VITALS: BP 119/74; PULSE 86; RESP 18; TEMP 36.9; O2SAT 95
--- NOTE | 2024-02-09 16:29 | HO.WOUND ---
Wound Consult: Initial 58yr old?Female admitted to [facility] on 02/07/24 - See progress notes and H&P for detailed history.? Wound consult placed for right Cason Wound POA.? Patient agreeable to assessment and photo documentation.? The patient while at the bedside was alert and orientated but talked nonsensical at times. She asked the same questions repeatedly and had little insight into the cause of her injury or frequent falls at her home. Right [place]son Etiology: ??Post Hematoma Debridement by Dr. Mitchell Measurements:see charting for detailed measurements Wound Bed: red moist clean wound bed Drainage / Odor: dried drainage noted on dressing when removed Edges: ? unattached [place] wound: ?Intact significant swelling noted throughout right leg Pain: patient reports pain and tenderness Goals of Treatment: ? Durafiber packing for moisture management and outpt follow up with wound clinic Recommendations: 1. Turn and Reposition every 2 hours and as needed for patient comfort.? Use pillows or wedges to support off loading positions. 2. Off Load all bony prominences with use of pillows and heel boots if needed.? Apply Preventative foams where needed. ? 3. Monitor for incontinence and moisture control, use barrier creams when needed for prevention and treatment. 4. Provide adequate and supplemental nutrition.? 5. Order or Continue low air loss mattress. 6. Right Leg - Cleanse and irrigate with NS, Pat dry. Apply skin prep to periwound, lightly pack wound bed with Durafiber AG, Cover with foam dressing. Change every other to every 3 day. Re-consult wound care Nurse for wound deterioration or wound changes.
[2024-02-09 19:35] LABS: Vancomycin Random 15.2 mcg/mL (15-20)
--- NOTE | 2024-02-09 19:41 | HE.PHANOTE ---
RE: VIKTORIYA Patients level came back this morning at 25.2. Dose was held by morning Rph and another level was drawn at 1800 and came back at 15.2. Will continue patient at 1000 mg Q24 and get another level after 1 dose (02/10/24 @1800 ) to ensure patient safety vs efficacy.
[2024-02-09 20:00] VITALS: BP 118/65; PULSE 75; RESP 18; TEMP 36.7; O2SAT 97
[2024-02-09] MEDS: OLANZapine 2.5 MG TABLET PO (21:11)
[2024-02-09] MEDS: Mirtazapine 15 MG TABLET PO (21:11)
[2024-02-09] MEDS: traZODone HCL 100 MG TABLET 200 MG PO (21:12)
--- NOTE | 2024-02-09 22:17 | PC.NURSE ---
Upon assessment of patient, IV access infiltrated and painful to touch. IV removed. Patient is a difficult stick for IV access. IV was ultrasound guided. Nursing tnt line supervisor made aware and contacted nurse that is ultrasound guided IV trained to place a new one.
[2024-02-09] MEDS: vancomycin HCL 1,000 MG in 0.9 % Sodium Chloride 250 ML 270 MG IV (23:46)
[2024-02-10] MEDS: Piperacillin Sodium/Tazobactam 4.5 GM in 0.9 % Sodium Chloride 100 ML IV ×2 (00:55→05:44)
[2024-02-10 03:47] VITALS: BP 131/60; PULSE 80; RESP 18; TEMP 36.4; O2SAT 94
[2024-02-10] MEDS: Heparin Sodium,Porcine 5,000 UNIT/ML VIAL 5000 UNIT SUBCUT ×2 (05:45→17:00)
[2024-02-10] MEDS: Acetaminophen 325 MG TABLET 650 MG PO (05:45)
[2024-02-10] MEDS: Midodrine HCl 10 MG TABLET PO ×3 (05:45→17:00)
[2024-02-10] MEDS: Omeprazole 20 MG CAPSULE.DR PO (05:45)
[2024-02-10 06:15] LABS: Hematocrit 30.6 % (37.0-47.0); Hemoglobin 9.1 g/dl (12.0-16.0); Mean Corpuscular HGB Conc 29.7 g/dl (31.0-35.0); Mean Corpuscular Hemoglobin 25.9 pg (27.0-33.0); Mean Corpuscular Volume 87.2 fL (80.0-98.0); Mean Platelet Volume 10.9 fL (9.4-12.3); Red Blood Count 3.51 X10*6/uL (4.20-5.50)
[2024-02-10 06:18] LABS: Platelet Count 93 X10*3/uL (160-400); White Blood Count 1.4 X10*3/uL (4.8-10.8)
[2024-02-10 06:23] LABS: Anion Gap 9 (12-20); Blood Urea Nitrogen 12 mg/dL (9-16); Calcium 8.1 mg/dL (8.4-10.2); Carbon Dioxide 27 mmol/L (22-29); Chloride 111 mmol/L (96-108); Estimated Glomerular Filt Rate > 60; Glucose Fasting 148 mg/dL (60-99); Potassium 3.9 mmol/L (3.3-5.1); Sodium 143 mmol/L (135-145)
[2024-02-10 08:00] VITALS: BP 125/72; PULSE 81; RESP 18; TEMP 36.4; O2SAT 95
[2024-02-10] MEDS: Topiramate 25 MG TABLET 50 MG PO ×2 (08:28→20:39)
[2024-02-10] MEDS: Venlafaxine HCl ER 75 MG CAP.ER.24H PO (08:28)
[2024-02-10] MEDS: Thiamine HCL 100 MG TABLET PO (08:28)
[2024-02-10] MEDS: rifAXIMin 550 MG TABLET PO ×2 (08:28→20:40)
[2024-02-10] MEDS: Potassium Chloride ER 20 MEQ TAB.ER.PRT PO ×2 (08:29→20:39)
[2024-02-10] MEDS: Gabapentin 300 MG CAPSULE 600 MG PO ×3 (08:29→20:38)
[2024-02-10] MEDS: Venlafaxine HCl ER 37.5 MG CAP.ER.24H PO (08:29)
[2024-02-10] MEDS: hydrOXYzine HCL 25 MG TABLET PO (08:29)
[2024-02-10] MEDS: Folic Acid 1 MG TABLET PO (08:29)
[2024-02-10] MEDS: LORazepam 0.5 MG TABLET PO ×2 (08:44→16:59)
--- NOTE | 2024-02-10 09:05 | HO.PM.IMPN ---
Subjective Subjective Date of Service: 02/10/24 Interval History: denies any complaints Physical Exam Vital Signs: Vital Signs: Last Vital Signs Temp 97.6 F 02/10/24 08:00 Pulse 81 02/10/24 08:00 Resp 18 02/10/24 08:00 BP 125/72 02/10/24 08:00 Pulse Ox 95 02/10/24 08:00 O2 Del Method Room Air 02/10/24 08:00 BMI result Body Mass Index 29.7 lethargic, oriented times 3 but with confabulation, some tremors, abd soft non tender, rle wound dressed Objective Data Active Medications Acetaminophen (Acetaminophen 325 Mg Tablet) 650 mg PO Q6H PRN PRN Reason: Pain, Mild (Pain Scale 1-3) Last Admin: 02/10/24 05:45 Dose: 650 mg Documented By: RICKI Folic Acid (Folic Acid 1 Mg Tablet) 1 mg PO DAILY [facility] Last Admin: 02/10/24 08:29 Dose: 1 mg Documented By: JAMEL Furosemide (Furosemide 40 Mg Tablet) 40 mg PO SuTuTh@0900 [facility]; Protocol Last Admin: 02/09/24 07:41 Dose: 40 mg Documented By: ANGEL Gabapentin (Gabapentin 300 Mg Capsule) 600 mg PO TID [facility] Last Admin: 02/10/24 08:29 Dose: 600 mg Documented By: JAMEL Heparin Sodium (Porcine) (Heparin Sodium,Porcine 5,000 Unit/Ml Vial) 5,000 unit SUBCUT Q12H [facility] Last Admin: 02/10/24 05:45 Dose: 5,000 unit Documented By: RICKI Hydroxyzine HCl (Hydroxyzine Hcl 25 Mg Tablet) 12.5 mg PO TID [facility] Lactulose (Lactulose 20 Gm/30 Ml Solution) 20 gm PO BID [facility] Last Admin: 02/10/24 08:48 Dose: Not Given Documented By: JAMEL Non-Admin Reason: Patient Refused Lorazepam (Lorazepam 0.5 Mg Tablet) 0.5 mg PO TID PRN PRN Reason: severe anxiety Last Admin: 02/10/24 08:44 Dose: 0.5 mg Documented By: JAMEL Midodrine (Midodrine Hcl 10 Mg Tablet) 10 mg PO TID@0600,1200,1800 [facility] Last Admin: 02/10/24 05:45 Dose: 10 mg Documented By: RICKI Mirtazapine (Mirtazapine 7.5 Mg Tablet) 7.5 mg PO BEDTIME [facility] Naproxen (Naproxen 500 Mg Tablet) 500 mg PO BID PRN PRN Reason: joint pain Last Admin: 02/09/24 21:11 Dose: 500 mg Documented By: RICKI Olanzapine (Olanzapine 2.5 Mg Tablet) 2.5 mg PO BEDTIME [facility] Last Admin: 02/09/24 21:11 Dose: 2.5 mg Documented By: RICKI Omeprazole (Omeprazole 20 Mg Capsule.Dr) 20 mg PO DAILY@0630 [facility] Last Admin: 02/10/24 05:45 Dose: 20 mg Documented By: RICKI Ondansetron HCl (Ondansetron Hcl 4 Mg/2 Ml Vial) 4 mg IVPUSH Q8H PRN PRN Reason: Nausea and Vomiting Potassium Chloride (Potassium Chloride Er 20 Meq Tab.Er.Prt) 20 meq PO BID [facility] Last Admin: 02/10/24 08:29 Dose: 20 meq Documented By: JAMEL Rifaximin (Rifaximin 550 Mg Tablet) 550 mg PO BID [facility] Last Admin: 02/10/24 08:28 Dose: 550 mg Documented By: JAMEL Senna (Sennosides 8.6 Mg Tablet) 17.2 mg PO BEDTIME PRN PRN Reason: Constipation Sodium Chloride (0.9 % Sodium Chloride Flush 3 Ml Syringe) 3 ml IVFLUSH QSHIFT [facility] Last Admin: 02/10/24 08:35 Dose: Not Given Documented By: JAMEL Non-Admin Reason: IV Running Sumatriptan Succinate (Sumatriptan Succinate 25 Mg Tablet) 25 mg PO DAILY MRX1 PRN PRN Reason: Headache Thiamine HCl (Thiamine Hcl 100 Mg Tablet) 100 mg PO DAILY [facility] Last Admin: 02/10/24 08:28 Dose: 100 mg Documented By: JAMEL Topiramate (Topiramate 25 Mg Tablet) 50 mg PO BID [facility] Last Admin: 02/10/24 08:28 Dose: 50 mg Documented By: JAMEL Trazodone HCl (Trazodone Hcl 100 Mg Tablet) 100 mg PO BEDTIME [facility] Venlafaxine HCl (Venlafaxine Hcl Er 37.5 Mg Cap.Er.24h) 37.5 mg PO DAILY [facility] Last Admin: 02/10/24 08:29 Dose: 37.5 mg Documented By: JAMEL Venlafaxine HCl (Venlafaxine Hcl Er 75 Mg Cap.Er.24h) 75 mg PO DAILY [facility] Last Admin: 02/10/24 08:28 Dose: 75 mg Documented By: JAMEL Labs 02/10/24 06:01 02/10/24 06:01 Labs: Laboratory Results - last 24 hr 02/09/24 02/10/24 18:27 06:01 MCV 87.2 MCH 25.9 L MCHC 29.7 L RDW 16.0 Plt Count 93 L MPV 10.9 Absolute Nucleated RBC 0.000 Nucleated RBC % (auto) 0.0 Anion Gap 9 L Estim Creat Clear Calc 65.0 Estimated GFR > 60 Fasting Glucose 148 H Calcium 8.1 L Random Vancomycin 15.2 Microbiology Microbiology Results: Microbiology 02/07/24 08:03 Blood Culture - Preliminary Blood - Venous No growth after 48 hours. 02/07/24 07:38 Blood Culture - Preliminary Blood - Venous No growth after 48 hours. Assessment and Plan (1) Traumatic open wound of right lower leg with infection: Status: Acute Plan 58F alcohol use disorder with previous withdrawals, history of prior TBI, liver cirrhosis with esophageal varices and hyperammonemia on rifaxamin, previous subdural hemorrhage s/p craniotomy, and mood disorder?admitted for further management of infected wound RLE with cellulitis Acute infected wound RLE with cellulitis XR tib.fib negative for osseous abnormality except osteopenia leukopenia chronic, not sepsis changed vanc/zosyn to doxy general surgery appreciated, debrided at bedside, recommended alginate dressing every other day on discharge and wound care follow up Bilateral pneumonia asymptomatic abx as above UTI completed 3 days zosyn cultures - mixed cordelia Acute and chronic toxic and metabolic encephalopathy suspect chronic related to known hepatic encephalopathy, possible wernicke's, polypharmacy, vs acute related to infection Ammonia 47. Head CT negative for acute intracranial abnormality but showed encephalomalacia continue rifaximin. lactulose will start to titrate down sedating meds Recurrent falls pt recommending STR, patient not interested at this time Alcoholic cirrhosis- no acute decompensation complicated by pancytopenia, portal hypertension, esophageal varices, hepatic encephalopathy continue rifaximin, furosemide hypernatremia resolved with d5w Borderline hypotension -chronic r/t cirrhosis not sepsis hold clonidine. continue midodrine Mood disorder continue zyprexa dvt prophylaxis- heparin full code reason for continued hospitalization: not at baseline mental status Quality Stroke Does the patient have a stroke diagnosis?: No VTE Prior VTE?: No VTE Risk Level:: Medical - moderate - high VTE Device Contraindication: Treatment Not Indicated VTE Drug Contraindication: N/A - Med Ordered
[2024-02-10] MEDS: Doxycycline Monohydrate 100 MG CAPSULE PO ×2 (10:13→20:39)
[2024-02-10] MEDS: hydrOXYzine HCL 25 MG TABLET 12.5 MG PO ×2 (14:11→20:40)
[2024-02-10] MEDS: 0.9 % Sodium Chloride Flush 3 ML SYRINGE IVFLUSH ×2 (14:12→20:38)
[2024-02-10 15:29] VITALS: BP 125/72; PULSE 81; O2SAT 95
[2024-02-10 15:38] VITALS: BP 117/59; PULSE 88; RESP 16; TEMP 36; O2SAT 96
[2024-02-10] MEDS: NaPROXEN 500 MG TABLET PO (16:13)
[2024-02-10 19:14] VITALS: BP 119/59; PULSE 79; RESP 16; TEMP 36.3; O2SAT 93
[2024-02-10] MEDS: OLANZapine 2.5 MG TABLET PO (20:39)
[2024-02-10] MEDS: Mirtazapine 7.5 MG TABLET PO (20:39)
[2024-02-10] MEDS: traZODone HCL 100 MG TABLET PO (20:40)
[2024-02-11] MEDS: LORazepam 0.5 MG TABLET PO ×3 (02:19→20:21)
[2024-02-11 03:27] VITALS: BP 112/66; PULSE 87; RESP 18; TEMP 36.1; O2SAT 95
[2024-02-11] MEDS: Omeprazole 20 MG CAPSULE.DR PO (06:07)
[2024-02-11] MEDS: Midodrine HCl 10 MG TABLET PO ×2 (06:07→12:30)
[2024-02-11] MEDS: Heparin Sodium,Porcine 5,000 UNIT/ML VIAL 5000 UNIT SUBCUT ×2 (06:07→17:51)
[2024-02-11 07:31] VITALS: BP 104/51; PULSE 83; RESP 18; TEMP 36.2; O2SAT 93
[2024-02-11 07:38] LABS: Hematocrit 28.9 % (37.0-47.0); Hemoglobin 8.7 g/dl (12.0-16.0); Mean Corpuscular HGB Conc 30.1 g/dl (31.0-35.0); Mean Corpuscular Hemoglobin 26.3 pg (27.0-33.0); Mean Corpuscular Volume 87.3 fL (80.0-98.0); Mean Platelet Volume 12.1 fL (9.4-12.3); Platelet Count 116 X10*3/uL (160-400); Red Blood Count 3.31 X10*6/uL (4.20-5.50)
[2024-02-11 07:39] LABS: White Blood Count 1.6 X10*3/uL (4.8-10.8)
[2024-02-11 08:26] LABS: Anion Gap 9 (12-20); Blood Urea Nitrogen 13 mg/dL (9-16); Calcium 8.7 mg/dL (8.4-10.2); Carbon Dioxide 26 mmol/L (22-29); Chloride 112 mmol/L (96-108); Creatinine Clr Calc Pharmacy 86.7; Estimated Glomerular Filt Rate > 60; Glucose Fasting 139 mg/dL (60-99); Potassium 4.2 mmol/L (3.3-5.1); Sodium 143 mmol/L (135-145)
--- NOTE | 2024-02-11 08:54 | HO.PM.IMPN ---
Subjective Subjective Date of Service: 02/11/24 Interval History: denies any complaints Physical Exam Vital Signs: Vital Signs: Last Vital Signs Temp 97.2 F 02/11/24 07:31 Pulse 83 02/11/24 07:31 Resp 18 02/11/24 07:31 BP 104/51 L 02/11/24 07:31 Pulse Ox 93 02/11/24 07:31 O2 Del Method Room Air 02/11/24 07:31 BMI result Body Mass Index 29.7 lethargic, oriented times 3, much better insight today Objective Data Active Medications Acetaminophen (Acetaminophen 325 Mg Tablet) 650 mg PO Q6H PRN PRN Reason: Pain, Mild (Pain Scale 1-3) Last Admin: 02/10/24 05:45 Dose: 650 mg Documented By: COTEMA Doxycycline Monohydrate (Doxycycline Monohydrate 100 Mg Capsule) 100 mg PO Q12H [facility] Last Admin: 02/10/24 20:39 Dose: 100 mg Documented By: SRIRAM Folic Acid (Folic Acid 1 Mg Tablet) 1 mg PO DAILY [facility] Last Admin: 02/10/24 08:29 Dose: 1 mg Documented By: JAMEL Furosemide (Furosemide 40 Mg Tablet) 40 mg PO SuTuTh@0900 [facility]; Protocol Last Admin: 02/09/24 07:41 Dose: 40 mg Documented By: ANGEL Gabapentin (Gabapentin 300 Mg Capsule) 600 mg PO TID [facility] Last Admin: 02/10/24 20:38 Dose: 600 mg Documented By: SRIRAM Heparin Sodium (Porcine) (Heparin Sodium,Porcine 5,000 Unit/Ml Vial) 5,000 unit SUBCUT Q12H [facility] Last Admin: 02/11/24 06:07 Dose: 5,000 unit Documented By: SRIRAM Hydroxyzine HCl (Hydroxyzine Hcl 25 Mg Tablet) 12.5 mg PO TID [facility] Last Admin: 02/10/24 20:40 Dose: 12.5 mg Documented By: SRIRAM Lactulose (Lactulose 20 Gm/30 Ml Solution) 20 gm PO BID [facility] Last Admin: 02/10/24 21:07 Dose: Not Given Documented By: SRIRAM Non-Admin Reason: Patient Refused Lorazepam (Lorazepam 0.5 Mg Tablet) 0.5 mg PO TID PRN PRN Reason: severe anxiety Last Admin: 02/11/24 02:19 Dose: 0.5 mg Documented By: SRIRAM Midodrine (Midodrine Hcl 10 Mg Tablet) 10 mg PO TID@0600,1200,1800 [facility] Last Admin: 02/11/24 06:07 Dose: 10 mg Documented By: SRIRAM Mirtazapine (Mirtazapine 7.5 Mg Tablet) 7.5 mg PO BEDTIME [facility] Last Admin: 02/10/24 20:39 Dose: 7.5 mg Documented By: SRIRAM Naproxen (Naproxen 500 Mg Tablet) 500 mg PO BID PRN PRN Reason: joint pain Last Admin: 02/10/24 16:13 Dose: 500 mg Documented By: JAMEL Olanzapine (Olanzapine 2.5 Mg Tablet) 2.5 mg PO BEDTIME [facility] Last Admin: 02/10/24 20:39 Dose: 2.5 mg Documented By: SRIRAM Omeprazole (Omeprazole 20 Mg Capsule.Dr) 20 mg PO DAILY@0630 [facility] Last Admin: 02/11/24 06:07 Dose: 20 mg Documented By: SRIRAM Ondansetron HCl (Ondansetron Hcl 4 Mg/2 Ml Vial) 4 mg IVPUSH Q8H PRN PRN Reason: Nausea and Vomiting Potassium Chloride (Potassium Chloride Er 20 Meq Tab.Er.Prt) 20 meq PO BID [facility] Last Admin: 02/10/24 20:39 Dose: 20 meq Documented By: SRIRAM Rifaximin (Rifaximin 550 Mg Tablet) 550 mg PO BID [facility] Last Admin: 02/10/24 20:40 Dose: 550 mg Documented By: SRIRAM Senna (Sennosides 8.6 Mg Tablet) 17.2 mg PO BEDTIME PRN PRN Reason: Constipation Sodium Chloride (0.9 % Sodium Chloride Flush 3 Ml Syringe) 3 ml IVFLUSH QSHIFT [facility] Last Admin: 02/10/24 20:38 Dose: 3 ml Documented By: SRIRAM Sumatriptan Succinate (Sumatriptan Succinate 25 Mg Tablet) 25 mg PO DAILY MRX1 PRN PRN Reason: Headache Thiamine HCl (Thiamine Hcl 100 Mg Tablet) 100 mg PO DAILY [facility] Last Admin: 02/10/24 08:28 Dose: 100 mg Documented By: JAMEL Topiramate (Topiramate 25 Mg Tablet) 50 mg PO BID [facility] Last Admin: 02/10/24 20:39 Dose: 50 mg Documented By: SRIRAM Trazodone HCl (Trazodone Hcl 100 Mg Tablet) 100 mg PO BEDTIME [facility] Last Admin: 02/10/24 20:40 Dose: 100 mg Documented By: SRIRAM Venlafaxine HCl (Venlafaxine Hcl Er 37.5 Mg Cap.Er.24h) 37.5 mg PO DAILY [facility] Last Admin: 02/10/24 08:29 Dose: 37.5 mg Documented By: JAMEL Venlafaxine HCl (Venlafaxine Hcl Er 75 Mg Cap.Er.24h) 75 mg PO DAILY [facility] Last Admin: 02/10/24 08:28 Dose: 75 mg Documented By: JAMEL Labs 02/11/24 06:28 02/11/24 06:28 Labs: Laboratory Results - last 24 hr 02/11/24 06:28 MCV 87.3 MCH 26.3 L MCHC 30.1 L RDW 16.0 Plt Count 116 L MPV 12.1 Absolute Nucleated RBC 0.000 Nucleated RBC % (auto) 0.0 Anion Gap 9 L Estim Creat Clear Calc 86.7 Estimated GFR > 60 Fasting Glucose 139 H Calcium 8.7 D Microbiology Microbiology Results: Microbiology 02/07/24 Unknown Urine Culture - Final Urine Catheterized - Straight Catheter Assessment and Plan (1) Traumatic open wound of right lower leg with infection: Status: Acute Plan 58F alcohol use disorder with previous withdrawals, history of prior TBI, liver cirrhosis with esophageal varices and hyperammonemia on rifaxamin, previous subdural hemorrhage s/p craniotomy, and mood disorder?admitted for further management of infected wound RLE with cellulitis Acute infected wound RLE with cellulitis XR tib.fib negative for osseous abnormality except osteopenia leukopenia chronic, not sepsis changed vanc/zosyn to doxy general surgery appreciated, debrided at bedside, recommended alginate dressing every other day on discharge and wound care follow up Bilateral pneumonia asymptomatic abx as above UTI completed 3 days zosyn cultures - mixed cordelia Acute and chronic toxic and metabolic encephalopathy suspect chronic related to known hepatic encephalopathy, possible wernicke's, polypharmacy, vs acute related to infection Ammonia 47. Head CT negative for acute intracranial abnormality but showed encephalomalacia continue rifaximin. 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 continue midodrine Mood disorder continue zyprexa dvt prophylaxis- heparin full code reason for continued hospitalization: [facility] bed Quality Stroke Does the patient have a stroke diagnosis?: No VTE Prior VTE?: No VTE Risk Level:: Medical - moderate - high VTE Device Contraindication: Treatment Not Indicated VTE Drug Contraindication: N/A - Med Ordered
[2024-02-11] MEDS: Topiramate 25 MG TABLET 50 MG PO ×2 (09:35→20:21)
[2024-02-11] MEDS: Thiamine HCL 100 MG TABLET PO (09:35)
[2024-02-11] MEDS: Potassium Chloride ER 20 MEQ TAB.ER.PRT PO ×2 (09:35→20:21)
[2024-02-11] MEDS: Folic Acid 1 MG TABLET PO (09:35)
[2024-02-11] MEDS: Gabapentin 300 MG CAPSULE 600 MG PO ×3 (09:35→20:21)
[2024-02-11] MEDS: Venlafaxine HCl ER 37.5 MG CAP.ER.24H PO (09:35)
[2024-02-11] MEDS: rifAXIMin 550 MG TABLET PO ×2 (09:35→20:21)
[2024-02-11] MEDS: Venlafaxine HCl ER 75 MG CAP.ER.24H PO (09:35)
[2024-02-11] MEDS: Doxycycline Monohydrate 100 MG CAPSULE PO ×2 (09:35→20:21)
[2024-02-11] MEDS: hydrOXYzine HCL 25 MG TABLET 12.5 MG PO ×3 (09:36→20:22)
[2024-02-11] MEDS: 0.9 % Sodium Chloride Flush 3 ML SYRINGE IVFLUSH ×3 (09:37→20:22)
--- NOTE | 2024-02-11 13:08 | MHC.CM.PN ---
Addendum entered by Catia King 02/12/24 15:13: [facility] HAS BEEN ACCEPTED BY [facility] AUTH STILL PENDING Addendum entered by Catia King 02/12/24 13:56: [employer] [facility] OFFERING A BED PENDING INSURANCE AUTH AND [facility] DETERMINATION. SNF HAS SUBMITTED FOR AUTH AND THIS HAS SUBMITTED [facility] Original Note: PT MEDICALLY READY TO DC TO STR THIS WEEKEND, HOWEVER SNF IS NOT ACCEPTING DUE TO [facility] SCORE OF 1. REFERRAL EXPANDED
[2024-02-11 15:28] VITALS: BP 121/73; PULSE 79; RESP 16; TEMP 36.5; O2SAT 95
[2024-02-11 16:00] VITALS: BP 136/73; PULSE 91; RESP 17; TEMP 37; O2SAT 93
[2024-02-11 20:00] VITALS: BP 131/70; PULSE 85; RESP 16; TEMP 36.4; O2SAT 94
[2024-02-11] MEDS: OLANZapine 2.5 MG TABLET PO (20:21)
[2024-02-11] MEDS: Mirtazapine 7.5 MG TABLET PO (20:21)
[2024-02-11] MEDS: traZODone HCL 100 MG TABLET PO (20:21)
[2024-02-12 04:00] VITALS: BP 111/62; PULSE 86; RESP 16; TEMP 36.6; O2SAT 94
[2024-02-12] MEDS: Omeprazole 20 MG CAPSULE.DR PO (05:46)
[2024-02-12] MEDS: Heparin Sodium,Porcine 5,000 UNIT/ML VIAL 5000 UNIT SUBCUT ×2 (05:46→17:20)
[2024-02-12] MEDS: Midodrine HCl 10 MG TABLET PO (05:46)
[2024-02-12] MEDS: Acetaminophen 325 MG TABLET 650 MG PO (06:39)
[2024-02-12 07:36] VITALS: BP 122/65; PULSE 78; RESP 18; TEMP 37; O2SAT 95
[2024-02-12] MEDS: Gabapentin 300 MG CAPSULE 600 MG PO ×3 (08:02→21:03)
[2024-02-12] MEDS: Venlafaxine HCl ER 37.5 MG CAP.ER.24H PO (08:02)
[2024-02-12] MEDS: Potassium Chloride ER 20 MEQ TAB.ER.PRT PO ×2 (08:02→21:03)
[2024-02-12] MEDS: LORazepam 0.5 MG TABLET PO ×2 (08:02→21:46)
[2024-02-12] MEDS: rifAXIMin 550 MG TABLET PO ×2 (08:02→21:04)
[2024-02-12] MEDS: Venlafaxine HCl ER 75 MG CAP.ER.24H PO (08:02)
[2024-02-12] MEDS: Thiamine HCL 100 MG TABLET PO (08:02)
[2024-02-12] MEDS: Topiramate 25 MG TABLET 50 MG PO ×2 (08:02→21:04)
[2024-02-12] MEDS: NaPROXEN 500 MG TABLET PO ×2 (08:03→21:04)
[2024-02-12] MEDS: hydrOXYzine HCL 25 MG TABLET 12.5 MG PO ×3 (08:03→21:05)
[2024-02-12] MEDS: Folic Acid 1 MG TABLET PO (08:03)
[2024-02-12] MEDS: Furosemide 40 MG TABLET PO (08:05)
[2024-02-12] MEDS: 0.9 % Sodium Chloride Flush 3 ML SYRINGE IVFLUSH ×3 (08:10→21:05)
--- NOTE | 2024-02-12 09:03 | P.PNIM_ITS ---
Subjective Subjective Date of Service: 02/12/24 Interval History: feeling much better today Physical Exam 2 Vital Signs: Vital Signs: Last Vital Signs Temp 98.6 F 02/12/24 07:36 Pulse 78 02/12/24 07:36 Resp 18 02/12/24 07:36 BP 122/65 02/12/24 07:36 Pulse Ox 95 02/12/24 07:36 O2 Del Method Room Air 02/12/24 07:36 BMI result Body Mass Index 29.7 alert, oriented times 3, no acute distress Objective Data Active Medications Acetaminophen (Acetaminophen 325 Mg Tablet) 650 mg PO Q6H PRN PRN Reason: Pain, Mild (Pain Scale 1-3) Last Admin: 02/12/24 06:39 Dose: 650 mg Documented By: SRIRAM Doxycycline Monohydrate (Doxycycline Monohydrate 100 Mg Capsule) 100 mg PO Q12H [facility] Last Admin: 02/11/24 20:21 Dose: 100 mg Documented By: SRIRAM Folic Acid (Folic Acid 1 Mg Tablet) 1 mg PO DAILY [facility] Last Admin: 02/12/24 08:03 Dose: 1 mg Documented By: MAGALY Furosemide (Furosemide 40 Mg Tablet) 40 mg PO SuTuTh@0900 [facility]; Protocol Last Admin: 02/12/24 08:05 Dose: 40 mg Documented By: MAGALY Gabapentin (Gabapentin 300 Mg Capsule) 600 mg PO TID [facility] Last Admin: 02/12/24 08:02 Dose: 600 mg Documented By: MAGALY Heparin Sodium (Porcine) (Heparin Sodium,Porcine 5,000 Unit/Ml Vial) 5,000 unit SUBCUT Q12H [facility] Last Admin: 02/12/24 05:46 Dose: 5,000 unit Documented By: SRIRAM Hydroxyzine HCl (Hydroxyzine Hcl 25 Mg Tablet) 12.5 mg PO TID [facility] Last Admin: 02/12/24 08:03 Dose: 12.5 mg Documented By: MAGALY Lactulose (Lactulose 20 Gm/30 Ml Solution) 20 gm PO BID [facility] Last Admin: 02/12/24 08:10 Dose: Not Given Documented By: MAGALY Non-Admin Reason: Patient Refused Lorazepam (Lorazepam 0.5 Mg Tablet) 0.5 mg PO TID PRN PRN Reason: severe anxiety Last Admin: 02/12/24 08:02 Dose: 0.5 mg Documented By: MAGALY Midodrine (Midodrine Hcl 10 Mg Tablet) 10 mg PO TID@0600,1200,1800 [facility] Last Admin: 02/12/24 05:46 Dose: 10 mg Documented By: SRIRAM Mirtazapine (Mirtazapine 7.5 Mg Tablet) 7.5 mg PO BEDTIME [facility] Last Admin: 02/11/24 20:21 Dose: 7.5 mg Documented By: SRIRAM Naproxen (Naproxen 500 Mg Tablet) 500 mg PO BID PRN PRN Reason: joint pain Last Admin: 02/12/24 08:03 Dose: 500 mg Documented By: MAGALY Olanzapine (Olanzapine 2.5 Mg Tablet) 2.5 mg PO BEDTIME [facility] Last Admin: 02/11/24 20:21 Dose: 2.5 mg Documented By: SRIRAM Omeprazole (Omeprazole 20 Mg Capsule.Dr) 20 mg PO DAILY@0630 [facility] Last Admin: 02/12/24 05:46 Dose: 20 mg Documented By: SRIRAM Ondansetron HCl (Ondansetron Hcl 4 Mg/2 Ml Vial) 4 mg IVPUSH Q8H PRN PRN Reason: Nausea and Vomiting Potassium Chloride (Potassium Chloride Er 20 Meq Tab.Er.Prt) 20 meq PO BID [facility] Last Admin: 02/12/24 08:02 Dose: 20 meq Documented By: MAGALY Rifaximin (Rifaximin 550 Mg Tablet) 550 mg PO BID [facility] Last Admin: 02/12/24 08:02 Dose: 550 mg Documented By: MAGALY Senna (Sennosides 8.6 Mg Tablet) 17.2 mg PO BEDTIME PRN PRN Reason: Constipation Sodium Chloride (0.9 % Sodium Chloride Flush 3 Ml Syringe) 3 ml IVFLUSH QSHIFT [facility] Last Admin: 02/12/24 08:10 Dose: 3 ml Documented By: MAGALY Sumatriptan Succinate (Sumatriptan Succinate 25 Mg Tablet) 25 mg PO DAILY MRX1 PRN PRN Reason: Headache Thiamine HCl (Thiamine Hcl 100 Mg Tablet) 100 mg PO DAILY [facility] Last Admin: 02/12/24 08:02 Dose: 100 mg Documented By: MAGALY Topiramate (Topiramate 25 Mg Tablet) 50 mg PO BID [facility] Last Admin: 02/12/24 08:02 Dose: 50 mg Documented By: MAGALY Trazodone HCl (Trazodone Hcl 100 Mg Tablet) 100 mg PO BEDTIME [facility] Last Admin: 02/11/24 20:21 Dose: 100 mg Documented By: SRIRAM Venlafaxine HCl (Venlafaxine Hcl Er 37.5 Mg Cap.Er.24h) 37.5 mg PO DAILY [facility] Last Admin: 02/12/24 08:02 Dose: 37.5 mg Documented By: MAGALY Venlafaxine HCl (Venlafaxine Hcl Er 75 Mg Cap.Er.24h) 75 mg PO DAILY [facility] Last Admin: 02/12/24 08:02 Dose: 75 mg Documented By: MAGALY Labs 02/11/24 06:28 02/11/24 06:28 Assessment and Plan (1) Traumatic open wound of right lower leg with infection: Status: Acute Plan 58F alcohol use disorder with previous withdrawals, history of prior TBI, liver cirrhosis with esophageal varices and hyperammonemia on rifaxamin, previous subdural hemorrhage s/p craniotomy, and mood disorder?admitted for further management of infected wound RLE with cellulitis Acute infected wound RLE with cellulitis XR tib.fib negative for osseous abnormality except osteopenia leukopenia chronic, not sepsis changed vanc/zosyn to doxy general surgery appreciated, debrided at bedside, recommended alginate dressing every other day on discharge and wound care follow up Bilateral pneumonia asymptomatic abx as above UTI completed 3 days zosyn cultures - mixed cordelia Acute and chronic toxic and metabolic encephalopathy suspect chronic related to known hepatic encephalopathy, possible wernicke's, polypharmacy, vs acute related to infection Ammonia 47. Head CT negative for acute intracranial abnormality but showed encephalomalacia continue rifaximin. lactulose started to titrate down sedating meds much improved, appears at baseline Recurrent falls pt recommending STR Alcoholic cirrhosis- no acute decompensation complicated by pancytopenia, portal hypertension, esophageal varices, hepatic encephalopathy continue rifaximin, furosemide hypernatremia resolved with d5w Borderline hypotension -chronic r/t cirrhosis not sepsis hold clonidine. continue midodrine Mood disorder continue zyprexa dvt prophylaxis- heparin full code reason for continued hospitalization: [facility] bed Quality Stroke Does the patient have a stroke diagnosis?: No VTE Prior VTE?: No VTE Risk Level:: Medical - moderate - high VTE Device Contraindication: Treatment Not Indicated VTE Drug Contraindication: N/A - Med Ordered
[2024-02-12] MEDS: Doxycycline Monohydrate 100 MG CAPSULE PO ×2 (09:44→21:04)
[2024-02-12 12:00] VITALS: BP 132/76
[2024-02-12 15:08] VITALS: BP 129/65; PULSE 84; RESP 20; TEMP 37.1; O2SAT 95
[2024-02-12 15:11] VITALS: BP 153/65; PULSE 88; RESP 18; TEMP 37.4; O2SAT 95
[2024-02-12 19:54] VITALS: BP 144/63; PULSE 77; RESP 20; TEMP 36.6; O2SAT 95
[2024-02-12] MEDS: Mirtazapine 7.5 MG TABLET PO (21:04)
[2024-02-12] MEDS: OLANZapine 2.5 MG TABLET PO (21:04)
[2024-02-12] MEDS: traZODone HCL 100 MG TABLET PO (21:04)
[2024-02-12] MEDS: Lactulose 20 GM/30 ML SOLUTION PO (21:07)
--- NOTE | 2024-02-13 02:09 | PC.NURSE ---
Pt noted with forgetfulness, and anxious if need not met right away, scheduled meds given, pt still requested for her Ativan, Dr. Cooley made aware, Ativan 0.5 mg po given, settled after but awake most of the night.
[2024-02-13 03:57] VITALS: BP 109/56; PULSE 86; RESP 16; TEMP 36.5; O2SAT 94
[2024-02-13] MEDS: Heparin Sodium,Porcine 5,000 UNIT/ML VIAL 5000 UNIT SUBCUT (06:02)
[2024-02-13] MEDS: Midodrine HCl 10 MG TABLET PO (06:02)
[2024-02-13] MEDS: Omeprazole 20 MG CAPSULE.DR PO (06:03)
[2024-02-13 07:13] VITALS: BP 122/57; PULSE 85; RESP 16; TEMP 36.1; O2SAT 95
--- NOTE | 2024-02-13 08:44 | P.DS_ITS ---
DS: Providers Provider Date of Service: 02/13/24 Date of admission: 02/07/24 14:27 Primary care physician: ERIKA Alvarenga Consults: 02/07/24 14:29 Consult to General Surgery Routine Consulting Provider: [facility] [place] General Surgeons Reason for consultation: infected wound with eschar RLE 02/08/24 11:03 Consult to Wound Care Routine Reason for consultation: RLE wound and cellulitis DS: Diagnosis Discharge Diagnosis (1) Traumatic open wound of right lower leg with infection: Status: Acute DS: Summary Hospital Course Hospital Course: from initial hpi: 58-year-old female patient with a past medical history of alcohol use disorder with previous withdrawals, history of prior TBI, liver cirrhosis with esophageal varices and hyperammonemia on rifaxamin, previous subdural hemorrhage s/p cranio andrez, and mood disorder?presented to the ED earlier today via ems due to recurrent falls at home. She states she falls due to chronic weakness in the R ankle. States she injured the ankle about 1 year ago and follows with [facility] and is due to have surgery on the joint but is unable to provide additional details. She is oriented x4 but appears drowsy and somewhat slow ot respond. She denies any etoh use in about 1 year. No ilicit substance use or cigarette smoking. She is a former smoker. She has bruises all over her body and is reporting a wound of the RLE which she noticed 2 days ago. No purulent drainage. Denies fevers, chills, abd pain, n/v/d, dysuria, hematuria, increased urinary frequency, cough, sob, wheezing, or chest pain. Denies head injury or loc with her falls. No prolonged downtime. Has VNA at home who assist with care. On arrival, VSS other than chronically borderline hypotension related to cirrhosis. Has chronic leukopenia 2.2. Renal function, lytes normal. Total CK 70. Ammonia 47. UA with 2+ leuks, positive urinary sediment, 3+ bacteria. Ethyl alcohol level undetectable. UTox pending. XR R ankle, tib/fib, knee, femur, hip negative for acute osseous abnormality or focal bony erosion but does show osteopenia. Venous duplex RLE negative for dvt. Head CT negative for acute intracranial abnormality. Shows right frontal and perietal bone craniotomy defect and possible encephalomalacia or postsurgical change vs old infarct in right subcortical and periventricular matter of right frontal lobe. Chest CT shows bilateral upper lobe consolidation with left basilar bronchial wall thickening and tree-in-bud opacities consistent with infection as well as cirrhosis with portal hypertension with varices and splenomegaly. In the ED, given midodrine, 1 L IV NS, albumin x2, 1g ctx, 3.375g zosyn, oxycodone. Pt to be admitted for further management of infected ulcer of RLE with cellulitis. hospital course: Patient was admitted for acute infected wound of the right lower extremity with cellulitis. She was initially treated with vancomycin Zosyn and then completed course of p.o. doxycycline. She was seen by General surgery who performed debridement at bedside and recommended alginate dressing every other day and wound care follow-up. Cellulitis resolved. For bilateral pneumonia patient was asymptomatic and treated with course of antibiotics as mentioned above. Patient was also treated for urinary tract infection, culture grew mixed cordelia. For acute on chronic toxic and metabolic encephalopathy due to hepatic encephalopathy, possible Wernicke's, polypharmacy, infection. Patient was continued on rifaximin, lactulose was restarted for a goal of 2-3 bowel movements per day. Her sedating meds were titrated down. Patient's mental status returned to baseline. For recurrent fall she was seen by physical therapy recommended short-term rehab. Patient is expected to require less than 30 days. For alcoholic cirrhosis complicated by pancytopenia, portal hypertension, esophageal varices patient should continue to follow-up with GI as outpatient. Course was complicated by hypernatremia which resolved with D5W for mood disorder she was continued on Zyprexa. Time Attestation Discharge Coordination Time (in mins): 35 Quality: Safe Use of Opioids Does Pt have an Active Cancer Diagnosis on the Problem List?: No Quality: Stroke Does the patient have a stroke diagnosis?: No Physical Exam Vital Signs: Vital Signs: Last Vital Signs Temp 96.9 F 02/13/24 07:13 Pulse 85 02/13/24 07:13 Resp 16 02/13/24 07:13 BP 122/57 L 02/13/24 07:13 Pulse Ox 95 02/13/24 07:13 O2 Del Method Room Air 02/13/24 07:13 BMI result Body Mass Index 29.7 alert, oriented times 3, no acute distress Discharge Plan Discharge Anticipated Discharge Date/Time: 02/13/24 08:39 Patient Disposition: Xfer SNF Discharge Diagnosis: cellulitis, pneumonia, toxic metabolic ecnephalopathy [facility] Brice David PA [Primary Care Provider] - 1 Week Discharge Medications: New trazodone 100 mg Tablet 100 mg PO BEDTIME Qty: 0 0RF gabapentin 300 mg Capsule 600 mg PO TID Qty: 0 0RF hydroxyzine HCl 25 mg Tablet 12.5 mg PO TID Qty: 0 0RF mirtazapine 7.5 mg Tablet 7.5 mg PO BEDTIME Qty: 0 0RF thiamine mononitrate (vit B1) 100 mg Tablet 100 mg PO DAILY Qty: 0 0RF lactulose 20 gram/30 mL Solution 20 g PO BID Qty: 0 0RF Continued furosemide 40 mg tablet 40 mg PO SuTuTh@0900 venlafaxine 37.5 mg capsule,extended release 24hr 37.5 mg PO DAILY venlafaxine 75 mg capsule,extended release 24hr 75 mg PO DAILY lidocaine [RectaSmoothe] 5 % Cream 1 appl TOPICAL TID PRN (Reason: Pain) meloxicam 15 mg tablet 15 mg PO DAILY PRN (Reason: Pain) sumatriptan succinate 25 mg tablet 25 mg PO DAILY MRX1 PRN (Reason: Headache) olanzapine 2.5 mg tablet 2.5 mg PO BEDTIME pantoprazole 20 mg tablet,delayed release (DR/EC) 20 mg PO DAILY potassium chloride 20 mEq tablet,ER particles/crystals 20 meq PO BID lorazepam 0.5 mg tablet 0.5 mg PO TID PRN (Reason: severe anxiety) folic acid 1 mg tablet 1 mg PO DAILY midodrine 10 mg tablet 10 mg PO TID topiramate 50 mg tablet 50 mg PO BID diclofenac sodium 1 % gel 4 g topical TID Xifaxan 550 mg tablet 550 mg PO BID Discontinued clonidine HCl 0.1 mg tablet 0.1 - 0.2 mg PO BEDTIME PRN (Reason: Insomnia) gabapentin 800 mg tablet 800 mg PO TID trazodone 100 mg tablet 200 mg PO BEDTIME hydroxyzine HCl 25 mg tablet 25 mg PO TID mirtazapine 15 mg tablet 15 mg PO BEDTIME Discharge Orders: Discharge Order (Routine); Ordered 02/13/24 Ordered By: Jeremy Jesin Diet: Advance to usual diet Activity on Discharge: As tolerated Stand Alone Forms: Patient Portal Discharge page Care Plan Goals: recovery Health Concerns: open wound, encephalopathy Plan of Treatment: meds changes per med rec (titrating down sedating meds, added lactulose), avoid ethanol, alginate dressing every other day, follow up with wound care Assessment: see above
--- NOTE | 2024-02-13 09:26 | MHC.CM.PN ---
EMR reviewed. Per MD patient is medically cleared for dc to STR at [facility]. Per [facility], they have obtained auth and can accept patient today. BLS transport booked for 11:30am. Patient, RN, and MD aware. IMM delivered.
[2024-02-13] MEDS: 0.9 % Sodium Chloride Flush 3 ML SYRINGE IVFLUSH (09:29)
[2024-02-13] MEDS: hydrOXYzine HCL 25 MG TABLET 12.5 MG PO (09:29)
[2024-02-13] MEDS: Topiramate 25 MG TABLET 50 MG PO (09:30)
[2024-02-13] MEDS: Doxycycline Monohydrate 100 MG CAPSULE PO (09:30)
[2024-02-13] MEDS: rifAXIMin 550 MG TABLET PO (09:30)
[2024-02-13] MEDS: Folic Acid 1 MG TABLET PO (09:30)
[2024-02-13] MEDS: Venlafaxine HCl ER 75 MG CAP.ER.24H PO (09:30)
[2024-02-13] MEDS: Gabapentin 300 MG CAPSULE 600 MG PO (09:31)
[2024-02-13] MEDS: Venlafaxine HCl ER 37.5 MG CAP.ER.24H PO (09:31)
[2024-02-13] MEDS: Potassium Chloride ER 20 MEQ TAB.ER.PRT PO (09:31)
[2024-02-13] MEDS: Thiamine HCL 100 MG TABLET PO (09:31)
[2024-02-13] MEDS: Loperamide HCl 2 MG CAPSULE PO (10:11)
[2024-02-13] MEDS: LORazepam 0.5 MG TABLET PO (10:44)
== END 2024-02-13 11:35 | disposition skilled nursing facility (03) | DRG 579 ==
LOC: HO.ED 12:25 → HO.EDOVER 14:37 → HO.S3 02-08 08:02
PROVIDERS: Admitting Provider Physician Assistant; Emergency Provider Emergency Medicine; PCP Physician Assistant Medical; Visit Provider Internal Medicine
DX: L03.115 Cellulitis of right lower limb (principal); G92.8 Other toxic encephalopathy; J18.9 Pneumonia, unspecified organism; N39.0 Urinary tract infection, site not specified; D61.818 Other pancytopenia; E87.0 Hyperosmolality and hypernatremia; K76.6 Portal hypertension; I85.10 Secondary esophageal varices without bleeding; T14.8XXS Other injury of unspecified body region, sequela; W19.XXXS Unspecified fall, sequela; F39 Unspecified mood [affective] disorder; F10.11 Alcohol abuse, in remission; I95.89 Other hypotension; K76.82 Hepatic encephalopathy; K70.30 Alcoholic cirrhosis of liver without ascites; R29.6 Repeated falls; Z87.820 Personal history of traumatic brain injury; Z91.81 History of falling; Z87.891 Personal history of nicotine dependence; Z79.899 Other long term (current) drug therapy
CPT/HCPCS: 36415; 70450; 71045; 71250; 73502; 73552; 73562; 73590; 73610; 80048; 80053; 80202; 80307; 81001; 81003; 82140; 82550; 83605; 83735; 84484; 85025; 85027; 85610; 87040; 87086; 93005; 93971; 97162; 97530; 99285; J0696; J1644; J2543; J3370; J3411; P9047

== ENCOUNTER → 2024-02-07 07:18 | Outpatient (BNV) | payer OTHER, SELFPAY | PROVIDERS: Admitting Provider Physician Assistant; Emergency Provider Emergency Medicine; Visit Provider Internal Medicine Cardiovascular Disease | DX: L03.90 Cellulitis, unspecified (principal); S81.801A Unspecified open wound, right lower leg, initial encounter; R53.1 Weakness; N39.0 Urinary tract infection, site not specified | CPT/HCPCS: 93010 ==

== ENCOUNTER → 2024-02-07 14:27 | Outpatient (BNV) | payer OTHER, SELFPAY | PROVIDERS: Admitting Provider Physician Assistant; Emergency Provider Emergency Medicine; Visit Provider Surgery | DX: S81.801A Unspecified open wound, right lower leg, initial encounter (principal); L08.9 Local infection of the skin and subcutaneous tissue, unspecified | CPT/HCPCS: 97597; 99222 ==

== ENCOUNTER → 2024-02-07 14:27 | Outpatient (BNV) | payer OTHER, SELFPAY | PROVIDERS: Admitting Provider Physician Assistant; Emergency Provider Emergency Medicine; Visit Provider Internal Medicine | DX: S81.801A Unspecified open wound, right lower leg, initial encounter (principal); L08.9 Local infection of the skin and subcutaneous tissue, unspecified | CPT/HCPCS: 99223; 99232; 99233; 99239 ==